=== PATIENT | female | born 1985 | race African-American/Black ===

== ENCOUNTER 2016-04-10 19:33 | Emergency (ER) | payer OTHER ==
[~2016-04-10] VITALS: Ht 172.7 cm; Wt 55.6 kg
[~2016-04-10 19:33] MED LIST: BENADRYL25 MG PO; CYCLOBENZAPRINE10 MG PO; DIAZEPAM10 M1 PO; DILAUDID 4 MG TA4 M1 PO; FLEXERIL; FOLIC ACID 1 MG1 M1; FOLIC ACID1 MG PO; HYDREA 500 MG500 M1; HYDREA 500 MG500 M1 PO; IMIPRAMINE HCL10 M2; LEXAPRO 10 MG T10 M1 PO; LIDOCAINE; LIDOCAINE 22 %/30 GM; LISINOPRIL2.5 MG; MARINOL5 MG PO; NEXIUM 40 MG CA40 M1; OXYCONTIN CR 2020 M1; PERCOCET 10-321 EAC1 PO; PHENERGAN 25 MG25 M1 PO; PHENERGAN25 MG RECTAL; POTASSIUM20 PO; PREDNISONE 10 M10 M1 PO; PRENATAL; PRINIVIL10 MG PO; PROZAC 20 MG20 MG; REGLAN 10 MG TA10 M1 PO; VITAMIN D1000 UNI1
[2016-04-10 20:35] LABS: ABSOLUTE NEUTROPHILS 9.9 thou/uL (1.4-8.2); BASOPHILS 0.8 % (0.0-2.0); EOSINOPHILS 1.7 % (0.0-3.0); HEMATOCRIT 23.4 % (37.0-47.0); HEMOGLOBIN 7.9 gm/dL (12.0-15.0); LYMPHOCYTES 22.3 % (24.0-44.0); MCH 29.7 pg (26.0-34.0); MCHC 33.7 % (28.0-37.0); MCV 88.1 fL (80.0-100.0); MONOCYTES 8.1 % (1.0-8.0); PLATELET COUNT 216 thou/uL (150-400); POLYS 67.1 % (36.0-66.0); RBC 2.65 mil/uL (4.20-5.00); RDW 18.2 % (10.5-14.5); WBC 14.8 thou/uL (4.0-11.0)
[2016-04-10 20:38] LABS: MANUAL DIFF NO
[2016-04-10 20:43] LABS: CALCIUM 8.5 mg/dL (8.5-10.1); CREATININE 3.5 mg/dL (0.6-1.3); POTASSIUM 4.9 mmol/L (3.5-5.1)
[2016-04-10 22:26] LABS: ALBUMIN 3.4 g/dL (3.4-5.0); DIRECT BILIRUBIN 0.2 mg/dL (<0.1-0.3); TOTAL BILIRUBIN 1.6 mg/dL (<0.1-1.0); TOTAL PROTEIN 7.4 g/dL (6.4-8.2)
[2016-04-10 22:37] LABS: URINE BILIRUBIN NEGATIVE (Negative); URINE BLOOD 2+ (Negative); URINE COLOR YELLOW; URINE GLUCOSE-RANDOM* NEGATIVE (Negative); URINE KETONES NEGATIVE (Negative); URINE LEUKOCYTES-REFLEX NEGATIVE (Negative); URINE PROTEIN (DIPSTICK) 2+ (Negative); URINE UROBILINOGEN 0.2 E.U./dl (0.2-1.0)
[2016-04-10 22:44] LABS: CASTS None Seen /LPF (None Seen); CRYSTALS None Seen /LPF (None Seen); SQUAMOUS 4-10 Moderate /LPF (0-3); URINE WBC-REFLEX None Seen /HPF (0-5)
[2016-04-10 22:45] LABS: URINE RBC 0-2 Rare /HPF (0-2)
== END 2016-04-10 23:52 | disposition home or self-care (01) ==
LOC: ER 19:33
PROVIDERS: Emergency Medicine; Physician Assistant
DX: D57.00 Hb-SS disease with crisis, unspecified (principal); N18.4 Chronic kidney disease, stage 4 (severe); D64.9 Anemia, unspecified; F41.9 Anxiety disorder, unspecified; F32.9 Major depressive disorder, single episode, unspecified; Z88.6 Allergy status to analgesic agent

== ENCOUNTER 2016-07-07 14:54 | Emergency (ER) | payer OTHER ==
[~2016-07-07] VITALS: Ht 172.7 cm; Wt 54.6 kg
[2016-07-07] MEDS ORDERED: PHENERGAN 25 MG25 M1 PO (15:09)
[2016-07-07] MEDS ORDERED: SODIUM BICARBO650 M3 PO (15:15)
[2016-07-07] MEDS ORDERED: ALBUTEROL0.63 MG/3 IH (15:16)
[2016-07-07 17:04] LABS: MCV 87.1 fL (80.0-100.0)
[2016-07-07 17:06] LABS: MCHC 34.4 g/dL (28.0-37.0); RBC 1.86 mil/uL (4.20-5.00); RDW 16.9 % (10.5-14.5)
[2016-07-07 17:10] LABS: HEMATOCRIT 16.2 % (37.0-47.0); HEMOGLOBIN 5.6 gm/dL (12.0-15.0)
[2016-07-07 17:18] LABS: ABSOLUTE RETIC COUNT 0.2051 10^6/uL; OBSERVED RETIC COUNT 8.96 % (0.6-2.6)
== END 2016-07-07 19:50 | disposition home or self-care (01) ==
LOC: ER 14:54
PROVIDERS: Emergency Medicine
DX: D57.00 Hb-SS disease with crisis, unspecified (principal); N18.5 Chronic kidney disease, stage 5; Z99.2 Dependence on renal dialysis; F41.9 Anxiety disorder, unspecified; F32.9 Major depressive disorder, single episode, unspecified; Z88.6 Allergy status to analgesic agent

== ENCOUNTER 2016-07-18 16:44 | Inpatient (IN) | payer OTHER ==
[~2016-07-18] VITALS: Ht 172.7 cm; Wt 54.9 kg
--- NOTE | ~2016-07-18 | HC ---
[facility] [place] [address] CONSULTATION Name: SOLITARIO CHAUHAN Room #: 430-P ADM IN M.R.#: [id number] Admission: 07/18/16 Attend Phys: Erick Woods MD Discharge: Date of : 81 Report #: [id number] THIS REPORT FOR: //name// CC: Bart Woods REASON FOR CONSULTATION: The patient is on dialysis. REASON FOR PRESENTATION: Weakness, fever and nausea. HISTORY OF PRESENT ILLNESS: This is a 31-year-old -Tong[place] female patient with history of sickle cell disease. She is followed by [facility]. She tells me that she had been started on dialysis 3 weeks ago. 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 She was diagnosed with sickle cell at the age of 3. She started dialysis 3 weeks ago utilizing a left IJ tunneled catheter, and she is currently maintained on a Wednesday, and Wednesday schedule. Her other comorbid issues include repeated episodes of sickle cell crises. She is followed by a home appliance technician for her sickle cell disease. She was found to have low hemoglobin on presentation and was admitted after being transfused for further evaluation and management. She was found to be hypokalemic; however, her hypokalemia rectified this morning. It does look like that she has significant amount of proteinuria based on the initial UA that was done. PAST MEDICAL AND SURGICAL HISTORY: 1. End-stage renal disease, maintained on dialysis every Wednesday, and Wednesday. 2. Repeated episodes of sickle cell crises. 3. Tubal ligation. 4. Status post left IJ tunneled catheter. 5. Status post gallbladder surgery. 6. Autosplenectomy. FAMILY HISTORY: Both parents have sickle cell traits. ALLERGIES: ZOFRAN. MEDICATIONS: 1. Dilaudid. 2. Folic acid. 3. Promethazine. SOCIAL HISTORY: No drug or alcohol abuse. 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 REVIEW OF SYSTEMS: GENERAL: As per the history of present illness. CARDIOVASCULAR: No chest pain; however, significant shortness of breath. [facility] [address] [place] [address] CONSULTATION Name: SOLITARIO CHAUHAN Room #: 430-[facility] IN [facility].#: [id number] Admission: 07/18/16 Attend Phys: Erick Woods MD Discharge: Date of : 81 Report #: [id number] PULMONARY: No cough or hemoptysis. GASTROINTESTINAL: She reported that she had vomited dark clotted blood. GENITOURINARY: She is still makes taking urine. No frequency or urgency. PHYSICAL EXAMINATION: GENERAL: She is alert and oriented. VITAL SIGNS: Temperature was 37.2. Blood pressure was 115/83. HEAD AND NECK: No jugular venous distention, right port left IJ. CHEST: Decreased air entry bilaterally. CARDIOVASCULAR: Regular with no rub. There is a systolic murmur. ABDOMEN: Soft and nontender with no hepatosplenomegaly. LOWER EXTREMITIES: No edema. DATA: Laboratory values reviewed. Hemoglobin is up to 7. Potassium is up to 4. Imaging including her chest x-ray reviewed. ASSESSMENT AND IMPRESSION: 1. End-stage renal disease. 2. Sickle cell. 3. Anemia. 4. Hypokalemia. 5. Vomitus of dark clotted blood x 1. 6. Fever. 7. Low hemoglobin value at 4 point something in the dialysis unit, for which she was advised to come to the emergency room. 8. Elevated ferritin. 9. Elevated liver enzymes. 10. Elevated LDH. PLAN: 1. Records are scanty given the fact that the patient is followed by [facility]. We will obtain the records. 2. She was transfused and her hemoglobin is up to an appropriate level. She is actually stable from my side to go home if she does not like spike any further temperature. Potassium was replaced and her potassium has rectified. 3. Pain control. 4. We will watch her numbers to decide about further dialysis treatment. 5. Elevated liver enzymes in a patient with sickle cell is expected. 6. Avoid further potassium supplements. 7. GI workup if [place] [address] CONSULTATION Name: SOLITARIO CHAUHAN Room #: 430-P ADM IN M.R.#: [id number] Admission: 07/18/16 Attend Phys: Erick Woods MD Discharge: Date of : 81 Report #: [id number] 8. Once I review the records, I will put in further recommendations regarding her end-stage renal disease. By: [id number] Sabiha Hinton MD /nt
--- NOTE | ~2016-07-18 | H ---
[facility] [place] [address] HISTORY AND PHYSICAL Name: SOLITARIO CHAUHAN Room #: 430-P [facility] IN M.R.#: [id number] Admission: 07/18/16 Attend Phys: Erick Woods MD Discharge: 07/19/16 Date of : 81 Report #: [id number] THIS REPORT FOR: //name// CC: Bart Woods DATE OF SERVICE: 07/19/2016 ATTENDING PHYSICIAN: Erick Woods MD. PRIMARY CARE PHYSICIAN: Bart Manjarrez MD. CHIEF COMPLAINT: Fever, nausea, vomiting and abdominal pain. HISTORY OF PRESENT ILLNESS: The patient is a 31-year-old female with a history of known sickle cell disease. She reports she has been in crisis for the last few weeks. She was actually seen in the ER on 07/07 with generalized body pain and was treated with pain medication and discharged back to home. She was recently started on hemodialysis about 3 weeks ago. She said that she was hospitalized at [facility] for crisis and her kidneys kept failing and she was started on dialysis. She had a temporary catheter in place. Prior to that, she had known chronic kidney stage IV. She is now being evaluated to start peritoneal dialysis. She has been receiving hemodialysis since that hospitalization on Tuesdays, and Saturdays. She just received dialysis today. She said ever since she was started on dialysis, she has been having increasing pain issues as well as increasing itching. She normally had some itching related to her regular Dilaudid use, but her itching has been worse since. She has seen a pain specialist in the past. She says that she has generalized pain which is worse in her hips, back and lower extremities. She also has abdominal pain which is diffuse. She has been vomiting intermittently for the last 4 days. She has not had any diarrhea. She actually feels constipated; although, she did have a normal bowel movement this morning. She also reports fevers up to 103.8 today. She does have chronic anemia. She says she does not get transfused unless her hemoglobin drops less than 6 and then at that time she only receives 1 unit of blood at a time because she has an iron overload disorder for which she has been treated with Desferal. She does not know if her disorder has any specific name. She is constantly scratching on herself, although there are no rashes or hives seen. She did receive some pain medication in the ER and has been admitted for further pain control as well as a blood transfusion. PAST MEDICAL HISTORY: Sickle cell disease; end-stage renal disease on hemodialysis; anemia; anxiety and depression, not on any current medications; and iron overload disorder. PAST SURGICAL HISTORY: Cholecystectomy, bilateral tubal ligation, Port-A-Cath [address] [address] HISTORY AND PHYSICAL Name: SOLITARIO CHAUHAN Room #: 430-P [facility] IN M.R.#: [id number] Admission: 07/18/16 Attend Phys: Erick Woods MD Discharge: 07/19/16 Date of : 81 Report #: [id number] placement, kidney biopsy, x 2. ALLERGIES: None. She does not take Zofran because she says that it makes her nausea and vomiting worse. HOME MEDICATIONS: Dilaudid 8 mg q. 4 hours p.r.n. pain; Benadryl 50 mg p.r.n.; Valium 10 mg at bedtime p.r.n.; Alvarado acid 1 mg daily; Marinol 5 mg daily, Phenergan 25 q. 6 hours p.r.n.; sodium bicarbonate 650 mg daily and albuterol inhaler p.r.n. SOCIAL HISTORY: The patient denies any tobacco, alcohol or drug use. She lives at home with her spouse and her 2 boys which are ages 6 and 4. FAMILY HISTORY: Her brother has sickle cell disease and had a stroke at the age of 18. There are no family members with any iron overload disorders. REVIEW OF SYSTEMS: Twelve point review of systems was reviewed with the patient, otherwise negative unless stated in the HPI. PHYSICAL EXAMINATION: GENERAL: The patient is an alert female, in no acute distress. VITAL SIGNS: Temperature is 37.4, heart rate 111, respirations 16, blood pressure is 134/91, oxygen 96% on room air. HEENT: PERRLA. Sclerae is nonicteric. Oral mucosa is pink and moist. NECK: Supple. No JVD noted. CARDIOVASCULAR: Normal S1, S2. No murmurs, rubs or gallops. RESPIRATORY: Breath sounds are clear bilaterally. No wheezing or rhonchi. Breathing is nonlabored. ABDOMEN: Soft and tender throughout, somewhat worse on the right side to palpation. Bowel sounds are hypoactive. VASCULAR: No edema noted. Pedal pulses are 2+. NEUROLOGIC: The patient is alert and oriented x 3. Speech is clear. She is moving all extremities equally. No focal weakness noted. PSYCHIATRIC: The patient is calm and cooperative, but she not make much eye contacts and does have a depressed affect. LABORATORY AND DIAGNOSTICS DATA: WBC is 19.7, hemoglobin 5.9 and platelets 265. Sodium 137, potassium 2.9, BUN 12, creatinine 2.3. Glucose 109. Reticulocyte count is 16.95, bilirubin 3.5, AST 99, ALT 97, alkaline phosphatase 153. Chest x-ray showed minor basilar atelectasis. UA showed 3+ protein, negative leukocyte esterase, no wbcs. Negative HCG. Moderate bacteria. CT the abdomen shows fullness of the right adnexal region suggesting a large [facility] [address] [place] [address] HISTORY AND PHYSICAL Name: SOLITARIO CHAUHAN Room #: 430-P [facility] IN [facility].#: [id number] Admission: 07/18/16 Attend Phys: Erick Woods MD Discharge: 07/19/16 Date of : 81 Report #: [id number] right ovarian cyst. There is a large amount of stool over the distal colon suggesting constipation, the bladder is collapsed. Consider possible cystitis, nothing for appendicitis or inflammatory bowel disease. ASSESSMENT AND PLAN: 1. Sickle cell crisis: Continue with fluids and pain control. Her reticulocyte count is elevated from previous labs. 2. End-stage renal disease: She was started on hemodialysis. If she is here more than a few days, we will consult renal as she will need hemodialysis on Wednesday to stay on her same schedule. 3. Chronic pain: She is on chronic narcotics, continue with current pain medications. 4. Iron overload disorder with chronic transaminitis: We will try to get the records from [facility]. She does get treated with Desferal outpatient. We will check iron levels. 5. Severe anemia: This is chronic, but her hemoglobin is lower than previous. We will go ahead and transfuse with a unit of blood and follow labs. 6. Hypokalemia: This will be replaced. Follow labs. 7. Chronic itching: It is not clear if this is due to her pain medications versus recently starting on hemodialysis versus elevated bilirubin, but her itching is worse than usual, continue with Benadryl p.r.n. 8. Leukocytosis: This is chronic as well. There is no source of infection seen on UA and chest x-ray, may be stress induced with her sickle cell crisis. No indication for antibiotics at this time. 9. Constipation: We will give MiraLax. 10. Large right ovarian cyst per CT: this can further be evaluated outpatient if it causes any further pain. 11. Deep vein thrombosis prophylaxis. Place SCDs. We will continue to follow the patient closely throughout the hospitalization and make changes based on clinical status. <ELECTRONICALLY SIGNED> By: CESARIO Paiz 07/20/16 0518 [id number] CESARIO Paiz /so
[~2016-07-18 16:44] MED LIST changes: +ALBUTEROL0.63 MG/3 IH; +SODIUM BICARBO650 M3 PO
[2016-07-18 16:45] VITALS: BP 134/91
[2016-07-18 17:19] LABS: ABSOLUTE NEUTROPHILS 14.3 thou/uL (1.4-8.2); BASOPHILS 0.5 % (0.0-2.0); EOSINOPHILS 0.9 % (0.0-3.0); LYMPHOCYTES 15.1 % (24.0-44.0); MCH 32.4 pg (26.0-34.0); MCHC 35.4 g/dL (28.0-37.0); MCV 91.5 fL (80.0-100.0); MONOCYTES 10.6 % (1.0-8.0); PLATELET COUNT 265 thou/uL (150-400); POLYS 72.9 % (36.0-66.0); RBC 1.84 mil/uL (4.20-5.00); RDW 24.9 % (10.5-14.5); WBC 19.7 thou/uL (4.0-11.0)
[2016-07-18 17:32] LABS: MANUAL DIFF NO
[2016-07-18 17:33] LABS: HEMATOCRIT 16.8 % (37.0-47.0)
[2016-07-18 17:34] LABS: HEMOGLOBIN 5.9 gm/dL (12.0-15.0)
[2016-07-18 17:45] LABS: ANISOCYTOSIS 3+; POLYCHROMASIA 1+
[2016-07-18 18:03] LABS: CALCIUM 8.1 mg/dL (8.5-10.1); CREATININE 2.3 mg/dL (0.6-1.0); TOTAL BILIRUBIN 3.5 mg/dL (<0.1-1.0); TOTAL PROTEIN 7.8 g/dL (6.4-8.2)
[2016-07-18 18:06] LABS: POTASSIUM 2.9 mmol/L (3.5-5.1)
[2016-07-18 18:23] LABS: URINE BILIRUBIN NEGATIVE (Negative); URINE BLOOD 3+ (Negative); URINE COLOR YELLOW; URINE GLUCOSE-RANDOM* NEGATIVE (Negative); URINE KETONES NEGATIVE (Negative); URINE LEUKOCYTES-REFLEX NEGATIVE (Negative); URINE PROTEIN (DIPSTICK) 3+ (Negative); URINE SPECIFIC GRAVITY 1.015 (1.003-1.035)
[2016-07-18 18:44] LABS: SQUAMOUS >10 Many /LPF (0-3)
[2016-07-18 18:45] LABS: CASTS None Seen /LPF (None Seen); CRYSTALS None Seen /LPF (None Seen); URINE WBC-REFLEX 0-5 Rare /HPF (0-5)
[2016-07-18 18:46] LABS: URINE RBC 0-2 Rare /HPF (0-2)
[2016-07-18 19:53] LABS: ABSOLUTE RETIC COUNT 0.3169 10^6/uL; OBSERVED RETIC COUNT 16.95 % (0.6-2.6)
[2016-07-18 20:59] VITALS: BP 115/84
[2016-07-18 21:15] VITALS: BP 113/83
[2016-07-19 01:15] VITALS: BP 115/78; BP 127/75
[2016-07-19 06:36] LABS: HEMATOCRIT 20.2 % (37.0-47.0); MCH 31.6 pg (26.0-34.0); MCHC 34.6 g/dL (28.0-37.0); MCV 91.4 fL (80.0-100.0); RBC 2.2 mil/uL (4.20-5.00); RDW 20.8 % (10.5-14.5); WBC 13.6 thou/uL (4.0-11.0)
[2016-07-19 06:54] LABS: CALCIUM 8.7 mg/dL (8.5-10.1); CREATININE 3.2 mg/dL (0.6-1.0); MAGNESIUM 1.9 mg/dL (1.8-2.4)
[2016-07-19 07:00] LABS: % SATURATION 103 % (20-39); IRON 178 ug/dL (50-170); TIBC 173 ug/dL (250-450); UIBC -5 ug/dL
[2016-07-19 08:00] VITALS: BP 119/82
[2016-07-19 12:59] VITALS: BP 119/82
[2016-07-19 16:00] VITALS: BP 133/87
[2016-07-19 16:38] VITALS: BP 119/82
== END 2016-07-19 17:12 | disposition home or self-care (01) | DRG 811 ==
LOC: ER 16:44 → EROBS 20:17 → 4E 21:04
PROVIDERS: Nurse Practitioner Acute Care; Physician Assistant
PROC: B2141ZZ Fluoroscopy of Right Heart using Low Osmolar Contrast (ICD-10-PCS; 2016-07-18)
PROC: 02H633Z Insertion of Infusion Device into Right Atrium, Percutaneous Approach (ICD-10-PCS; 2016-07-18)
PROC: 30233N1 Transfusion of Nonautologous Red Blood Cells into Peripheral Vein, Percutaneous Approach (ICD-10-PCS; principal; 2016-07-19)
DX: D57.00 Hb-SS disease with crisis, unspecified (principal); N18.6 End stage renal disease; F11.20 Opioid dependence, uncomplicated; F41.9 Anxiety disorder, unspecified; F32.9 Major depressive disorder, single episode, unspecified; D64.9 Anemia, unspecified; E87.6 Hypokalemia; D72.829 Elevated white blood cell count, unspecified; E83.111 Hemochromatosis due to repeated red blood cell transfusions; L29.9 Pruritus, unspecified; G89.29 Other chronic pain; R74.0 Nonspecific elevation of levels of transaminase and lactic acid dehydrogenase [LDH]; K59.00 Constipation, unspecified; N83.201 Unspecified ovarian cyst, right side; Z90.49 Acquired absence of other specified parts of digestive tract; Z88.8 Allergy status to other drugs, medicaments and biological substances; Z83.2 Family history of diseases of the blood and blood-forming organs and certain disorders involving the immune mechanism; Z82.3 Family history of stroke; Z99.2 Dependence on renal dialysis
CPT/HCPCS: 10183

== ENCOUNTER 2016-08-06 19:50 | Inpatient (IN) | payer OTHER ==
[~2016-08-06] VITALS: Ht 172.7 cm; Wt 54.0 kg
--- NOTE | ~2016-08-06 | HC ---
[facility] [place] [address] CONSULTATION Name: SOLITARIO CHAUHAN Room #: 422-P ADM IN M.R.#: [id number] Admission: 08/06/16 Attend Phys: Dianne Rodriguez MD Discharge: Date of : 81 Report #: [id number] THIS REPORT FOR: //name// CC: FAM unknown Dianne Rodriguez INFECTIOUS DISEASE CONSULTATION REASON FOR CONSULTATION: I was asked to evaluate concerning possible peritoneal dialysis catheter infection. HISTORY OF PRESENT ILLNESS: The patient was a 31-year-old with underlying sickle cell disease, end-stage renal disease who has been on dialysis for last several months. She had PD catheter placed approximately 3 weeks ago. She had been hospitalized last several days with a sickle crisis. For last 24-48 hours, she has noticed increased abdominal pain, specifically around the catheter. She has had temperature up to 100.1 degrees today. Hemodynamically had been stable and respiratory status had been stable. There has been no drainage from her dialysis catheter site. She does have a right chest Port-A-Cath in place as well as a left chest tunneled dialysis catheter. She has had some nausea and vomiting. No diarrhea. She has small amount of urine output. PAST MEDICAL HISTORY: Sickle cell disease, end-stage renal disease, tubal ligation, anxiety, depression, iron overload, cholecystectomy, kidney biopsy, C-sections. FAMILY HISTORY: Noncontributory other than her brother with sickle. SOCIAL HISTORY: Nonsmoker, no significant alcohol intake. ALLERGIES: ZOFRAN. MEDICATIONS: As noted on MAY, now on vancomycin and Zosyn that was started today. REVIEW OF SYSTEMS: No cough, sputum or chest pain. PHYSICAL EXAMINATION: VITAL SIGNS: Afebrile, hemodynamically stable. GENERAL: She was ambulatory, alert and cooperative. SKIN: Unremarkable other than tattoos. LYMPHATIC: Unremarkable. HEENT: Unremarkable. CHEST: Clear. HEART: Regular without murmur. CHEST: Right chest Port-A-Cath site was unremarkable. Left chest tunneled catheter was unremarkable. [facility] [address] [place] [address] CONSULTATION Name: SOLITARIO CHAUHAN Room #: 422[facility] IN M.R.#: [id number] Admission: 08/06/16 Attend Phys: Dianne Rodriguez MD Discharge: Date of : 81 Report #: [id number] ABDOMEN: Tender in the left upper quadrant around the PD catheter and along the catheter tunnel. I could not express any fluid. She was exquisitely tender though and would guard. Abdomen was otherwise soft and no hepatomegaly. EXTREMITIES: Unremarkable. LABORATORY STUDIES: Peritoneal fluid revealed 880 T-cells, 47% neutrophils, 9% lymphs, 17% eosinophils and 27% macrophages. Creatinine is 4. AST 88, bilirubin 3, ALT 98. Hemoglobin 8, white count 12.5, platelet count 192,000. Blood cultures and abdominal fluid culture pending. CT scan of the abdomen showed no fluid around the PD catheter tunnel. There was a small amount of fluid in the pelvis. IMPRESSION AND PLAN: A 31-year-old sickle cell disease with end-stage renal disease, now with low grade fever, abdominal pain and sickle crisis. The nausea, vomiting and gastrointestinal upset issues may well be related to her peritoneal dialysis catheter. It is hard to tell under examination for she guards extensively for a lot of this area. She also had some guarding when I manipulated the chest catheters. I would recommend continuing her IV antibiotic therapy and awaiting culture results. She does not appear to have peritonitis from the fluid analysis, but I would be concerned about a tunnel infection, although there is no fluid identified on CT scan. We will see how she does over the next 24 hours after IV antibiotic therapy. If no improvement, will need her catheter removed. <ELECTRONICALLY SIGNED> By: Dada Reddy MD 08/13/16 1008 10 0214 Dada Reddy MD /nt
--- NOTE | ~2016-08-06 | S ---
[facility] [place] [address] SURGICAL PATH RPT PROCEDURE Name: SOLITARIO SANDERS Room #: 422-P DIS IN M.R.#: [id number] Admission: 08/06/16 Date of : 81 Discharge: 08/14/16 Report #: [id number] Path Case #: [id number] PATHOLOGY REPORT COLLECTION DATE: 08/12/2016 RECEIVED DATE: 08/13/2016 SUBMITTING PHYS: Dr. Caro Leon OTHER PHYS: Dr. Gurvinder Nelson SPECIMEN(S) RECEIVED: A.Nodular duodenal bulb bx B.Gastric * * * * * * * * * * * * FINAL DIAGNOSIS: A. 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 - Negative for dysplasia. B. Gastric mucosa, gastric, endoscopic biopsy: - Mild reactive gastropathy. - Negative for intestinal metaplasia or atrophy. - Negative for Helicobacter pylori. COMMENT: Helicobacter pylori immunohistochemical stain performed on block B1-negative. PATHOLOGIST: Irina Botello M.D. REPORT ELECTRONICALLY SIGNED BY: Irina Botello M.D. DATE/TIME: 08/14/2016 16:05 * * * * * * * * * * * * GROSS PATHOLOGY: A. Received in formalin labeled "Solitario Sanders, nodule duodenal bulb," is a segment of sanchez soft tissue measuring 0.2 x 0.2 x 0.2 cm in maximum dimension. The specimen is submitted entirely in cassette A1. B. Received in formalin labeled " Solitario Sanders, shady," are 2 segments of sanchez soft tissue measuring 0.9 x 0.2 x 0.2 cm in aggregate dimensions and ranging from 0.4 to 0.5 cm in maximum dimension. The specimen is submitted entirely in cassette B1. (NARGIS; 08/13/2016) CLINICAL HISTORY: [facility] [place] [address] SURGICAL PATH RPT PROCEDURE Name: SOLITARIO SANDERS Room #: 422-P [facility] IN M.R.#: [id number] Admission: 08/06/16 Date of : 81 Discharge: 08/14/16 Report #: [id number] Path Case #: [id number] Abdominal pain INITIAL CPT CODE(S): A; 63102 B; 78185, 28432 Professional services performed by [facility] at [address], [place] [address] Technical services performed by [facility] at [address] [place] [address], [facility] [address] [address]. [facility] [address] [place] [id number] PHONE: [phone] DIRECTOR: Barry Miller M.D. * * * END OF REPORT * * *
--- NOTE | ~2016-08-06 | HC ---
[facility] [place] [address] CONSULTATION Name: SOLITARIO CHAUHAN Room #: 422-P ADM IN M.R.#: [id number] Admission: 08/06/16 Attend Phys: Dianne Rodriguez MD Discharge: Date of : 81 Report #: [id number] THIS REPORT FOR: //name// CC: FAM unknown Dianne Rodriguez DATE OF SERVICE: 08/07/2016 NEPHROLOGY CONSULTATION REASON FOR CONSULTATION: End-stage renal disease. HISTORY OF PRESENT ILLNESS: The patient with known sickle cell, has developed renal failure and has been on dialysis for several months. She had a peritoneal dialysis catheter placed, but she has been on hemodialysis with a tunnel dialysis catheter. The peritoneal catheter was placed yesterday. She developed what appears to be a sickle crisis with very ever pain in the back and legs. She was admitted and she is getting treated for that. PAST MEDICAL HISTORY: Sickle cell, as mentioned; iron overload; autosplenectomy and previous gallbladder removal. FAMILY HISTORY: Positive for sickle cell in a brother. SOCIAL HISTORY: No cigarettes or alcohol. HOME MEDICATIONS: Listed as diazepam, Marinol, hydromorphone bicarbonate and Phenergan. REVIEW OF SYSTEMS: GENERAL: She has been doing somewhat poorly. EYES: Her vision is okay. ENT: Hearing okay. No mouth ulcers. ENDOCRINE: No diabetes or thyroid disease. RESPIRATORY: Not short of breath. No pleuritic pain. CARDIAC: Has not had angina, heart failure or arrhythmias. GASTROINTESTINAL: Appetite is fair. No diarrhea or bloody stool. She has had some nausea and vomiting. GENITOURINARY: Urinary stream is still okay. NEUROLOGIC: No seizure, syncope or stroke. SKELETAL: She is having a crisis with the extremity pains. PHYSICAL EXAMINATION: GENERAL: This is a somewhat ill-appearing young lady. SKIN: Unremarkable. SKELETAL: Not obese, thin. [facility] [address] [place] [address] CONSULTATION Name: SOLITARIO CHAUHAN Room #: 422-P [facility] IN [facility].#: [id number] Admission: 08/06/16 Attend Phys: Dianne Rodriguez MD Discharge: Date of : 81 Report #: [id number] HEENT: Extraocular movements full. Vision intact. Hearing intact. Mucous membranes moist. Tongue, buccal mucosa benign. NECK: Supple. No carotid bruits. CHEST: Clear to auscultation. HEART: Regular rate and rhythm. ABDOMEN: Soft, nontender. Peritoneal dialysis catheter in place and tunneled hemodialysis catheter in place. LABORATORY DATA: The hemoglobin is only 5.6. Sodium 137, potassium is 4.3, chloride 104, bicarbonate 30, BUN 13 and creatinine 2.8. ASSESSMENT AND PLAN: 1. End-stage renal disease. She is to start on dialysis by the [facility]. We will continue treatment. I will give her only a 3-hour treatment as her numbers look pretty good. I will not be able to with ultrafiltration. 2. 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 3. Iron overload. <ELECTRONICALLY SIGNED> By: Cayetano Alberto MD 08/10/16 1048 1054 1459 Cayetano Alberto MD /nt
--- NOTE | ~2016-08-06 | P ---
[facility] [place] [address] PROCEDURE REPORT Name: SOLITARIO CHAUHAN Room #: 422-P ADM IN M.R.#: [id number] Admission: 08/06/16 Attend Phys: Dianne Rodriguez MD Discharge: Date of : 81 Report #: [id number] THIS REPORT FOR: //name// CC: FAM unknown Cayetano Rodriguez MD DATE OF SERVICE: 08/12/2016 This is a patient of Dr. Dianne Rodriguez. PROCEDURE: EGD with biopsies. CHIEF COMPLAINT: Abdominal pain, nausea, vomiting. She also back pain. She is believed to be in sickle cell crisis right now. She had a recent peritoneal dialysis catheter placed which has not been used yet. She is still on hemodialysis. Informed consent for this procedure was obtained prior to the administration of any medication. The risks of the procedure which include bleeding, perforation, infection, complications of sedation and the possibility I could miss something have been explained to the patient and she has indicated her consent by signing. Propofol was slowly titrated before and during this procedure for patient comfort by the anesthesia service. The [employer] ([employer]n upper videoscope was introduced through the upper esophageal sphincter and advanced under direct visualization to the descending duodenum. Findings are noted on withdrawal of the scope. The duodenal mucosa appears normal throughout its entirety except for just inside the duodenum as we come through the pylorus, there is a little area of what looks like ectopic gastric mucosa. Biopsies obtained times 1 to make certain that this is nothing else. Other than that, the duodenal bulb appears normal. Good hemostasis was noted after the biopsy. Pylorus, normal mucosa. Antrum, normal mucosa. Body, normal mucosa. Cardia and fundus, normal mucosa. Retroflex view did not reveal any hiatal hernia. Biopsies are obtained times 2 from the antrum and body of the stomach to evaluate for possible H. pylori infection. Retroflex view did not reveal any hiatal hernia. The scope was withdrawn to the esophagus. The Z-line is appropriately located at the top of the gastric folds and appears normal. The esophageal mucosa appears normal throughout its entirety. The scope was withdrawn. The patient went to the recovery area in stable condition. She tolerated the procedure well. IMPRESSION: Possible ectopic mucosa in the proximal duodenal bulb, biopsy pending. Other than that, normal EGD to descending duodenum. RECOMMENDATIONS: At this point, I am wondering if she might have gastroparesis. [address] [address] PROCEDURE REPORT Name: SOLITARIO CHAUHAN Room #: 422-P [facility] IN .R.#: [id number] Admission: 08/06/16 Attend Phys: Dianne Rodriguez MD Discharge: Date of : 81 Report #: [id number] We will schedule her for a gastric emptying test as the next study. Thank you very much once again for allowing me to participate in her care, Dr. Rodriguez. <ELECTRONICALLY SIGNED> By: Caro Leon DO 08/12/16 2329 1145 2316 Caro Leon, /nt
[2016-08-06 20:15] VITALS: BP 124/88
[2016-08-06 21:46] LABS: MANUAL DIFF YES; MCH 32.3 pg (26.0-34.0); MCV 92.1 fL (80.0-100.0); PLATELET COUNT 326 thou/uL (150-400); RBC 1.88 mil/uL (4.20-5.00); RDW 23.3 % (10.5-14.5); WBC 13.6 thou/uL (4.0-11.0)
[2016-08-06 21:48] LABS: HEMATOCRIT 17.3 % (37.0-47.0); HEMOGLOBIN 6.1 gm/dL (12.0-15.0)
[2016-08-06 21:49] LABS: ABSOLUTE RETIC COUNT 0.3244 10^6/uL; OBSERVED RETIC COUNT 17.18 % (0.6-2.6)
[2016-08-06 21:53] LABS: CALCIUM 8.1 mg/dL (8.5-10.1); CREATININE 2.5 mg/dL (0.6-1.0); POTASSIUM 4.2 mmol/L (3.5-5.1)
[2016-08-06 21:57] LABS: INR 1.1; PROTIME 11.5 Seconds (9.3-11.4)
[2016-08-06 21:58] LABS: TOTAL BILIRUBIN 2.9 mg/dL (<0.1-1.0); TOTAL PROTEIN 7.4 g/dL (6.4-8.2)
[2016-08-06 22:11] LABS: ABSOLUTE NEUTROPHILS 10.1 thou/uL (1.4-8.2); NUCLEATED RBCS 3 /100WBC; TOTAL CELL COUNT 100
[2016-08-06 22:13] LABS: ANISOCYTOSIS 2+; POLYCHROMASIA 1+
[2016-08-06 22:14] LABS: SCHISTOCYTES RARE; TARGET CELLS OCCASIONAL
[2016-08-06 22:55] VITALS: BP 121/84
[2016-08-06] MEDS ORDERED: DIPHENHIST50 MG PO (23:08)
[2016-08-07 04:00] VITALS: BP 128/88; BP 141/86
[2016-08-07 04:42] VITALS: BP 128/88
[2016-08-07 05:48] LABS: MCH 31.9 pg (26.0-34.0); MCHC 33.7 g/dL (28.0-37.0); MCV 94.8 fL (80.0-100.0); RBC 1.75 mil/uL (4.20-5.00); RDW 23.5 % (10.5-14.5); WBC 13.6 thou/uL (4.0-11.0)
[2016-08-07 05:51] LABS: HEMATOCRIT 16.6 % (37.0-47.0); HEMOGLOBIN 5.6 gm/dL (12.0-15.0)
[2016-08-07 05:59] LABS: CALCIUM 8.4 mg/dL (8.5-10.1); CREATININE 2.8 mg/dL (0.6-1.0); POTASSIUM 4.3 mmol/L (3.5-5.1)
[2016-08-07 07:43] VITALS: BP 116/76
[2016-08-07 15:33] VITALS: BP 120/83
[2016-08-07 20:00] VITALS: BP 112/74
[2016-08-08 04:00] VITALS: BP 126/78
[2016-08-08 06:08] LABS: WBC 13.6 thou/uL (4.0-11.0)
[2016-08-08 06:12] LABS: MCH 32.7 pg (26.0-34.0); MCV 93.4 fL (80.0-100.0); RBC 1.64 mil/uL (4.20-5.00)
[2016-08-08 06:21] LABS: HEMATOCRIT 15.3 % (37.0-47.0); HEMOGLOBIN 5.4 gm/dL (12.0-15.0)
[2016-08-08 06:22] LABS: CALCIUM 8.4 mg/dL (8.5-10.1); CREATININE 3.6 mg/dL (0.6-1.0); POTASSIUM 4.6 mmol/L (3.5-5.1)
[2016-08-08 09:03] VITALS: BP 132/83; BP 149/102
[2016-08-08 09:06] VITALS: BP 128/80
[2016-08-08 11:39] VITALS: BP 128/79; BP 135/91
[2016-08-08 16:03] VITALS: BP 135/91
[2016-08-08 20:00] VITALS: BP 128/92
[2016-08-09 04:14] LABS: HEMATOCRIT 24.8 % (37.0-47.0); MCV 91.7 fL (80.0-100.0); WBC 11.6 thou/uL (4.0-11.0)
[2016-08-09 04:16] LABS: MCH 31.2 pg (26.0-34.0); MCHC 34.1 g/dL (28.0-37.0); RBC 2.71 mil/uL (4.20-5.00); RDW 19.6 % (10.5-14.5)
[2016-08-09 05:00] LABS: HEMOGLOBIN 8.5 gm/dL (12.0-15.0)
[2016-08-09 05:59] VITALS: BP 135/96
[2016-08-09 16:08] VITALS: BP 131/97
[2016-08-09 20:00] VITALS: BP 137/101
[2016-08-10 04:00] VITALS: BP 126/90
[2016-08-10 06:23] LABS: HEMOGLOBIN 8.4 gm/dL (12.0-15.0); MCH 31.8 pg (26.0-34.0); RBC 2.63 mil/uL (4.20-5.00); RDW 21.7 % (10.5-14.5); WBC 11.1 thou/uL (4.0-11.0)
[2016-08-10 06:44] LABS: CALCIUM 7.3 mg/dL (8.5-10.1); PHOSPHORUS 4.8 mg/dL (2.5-4.9)
[2016-08-10 07:27] VITALS: BP 137/96
[2016-08-10 07:49] VITALS: BP 137/96
[2016-08-10 16:02] VITALS: BP 130/97
[2016-08-11 00:36] VITALS: BP 132/93
[2016-08-11 04:38] VITALS: BP 106/41
[2016-08-11 06:25] LABS: HEMATOCRIT 23.5 % (37.0-47.0); MCH 31.1 pg (26.0-34.0); MCHC 33.9 g/dL (28.0-37.0); MCV 91.8 fL (80.0-100.0); RBC 2.56 mil/uL (4.20-5.00); RDW 21.2 % (10.5-14.5); WBC 11.2 thou/uL (4.0-11.0)
[2016-08-11 06:35] LABS: CALCIUM 8.4 mg/dL (8.5-10.1); CREATININE 4.4 mg/dL (0.6-1.0)
[2016-08-11 07:38] VITALS: BP 130/91
[2016-08-11 15:59] VITALS: BP 114/84
[2016-08-11 20:00] VITALS: BP 118/82
[2016-08-12 04:17] VITALS: BP 116/80
[2016-08-12 05:59] LABS: HEMATOCRIT 23.1 % (37.0-47.0); MCHC 34.5 g/dL (28.0-37.0); MCV 89.9 fL (80.0-100.0); RBC 2.57 mil/uL (4.20-5.00); RDW 20.2 % (10.5-14.5); WBC 12.5 thou/uL (4.0-11.0)
[2016-08-12 06:10] LABS: POTASSIUM 5.1 mmol/L (3.5-5.1)
[2016-08-12 13:50] LABS: ABG SAMPLE TYPE ARTERIAL; BE(vivo) -0.6 mmol/L (-2 to +3); HCO3 23.6 mmol/L (22.0-26.0); LACTATE 0.79 mmol/L (0.5-2.0); O2(CT) 11.5 mL/dL (15.0-23.0); O2Hb 90.2 % (92.0-98.0); PCO2 36.7 mmHg (35.0-45.0); PO2 68.8 mmHg (80.0-100.0); pH 7.426 (7.360-7.450); sO2 94.3 % (92.0-98.0); tCO2 24.7 mmol/L (24.0-30.0)
[2016-08-12 13:51] LABS: ABG COMMENT NO COMPLICATIONS; STICK SITE R.RADIAL
[2016-08-12 14:52] LABS: BF NUCLEATED CELLS 882; BF RBC 1187
[2016-08-12 14:54] LABS: CLARITY CLOUDY; COLOR DARK YELLOW; MANUAL DIFF YES; TOTAL VOLUME 20 mL
[2016-08-12 15:37] LABS: BF MACROPHAGE 27; BF NEUTROPHILS 47
[2016-08-12 15:58] VITALS: BP 123/84
[2016-08-12 20:00] VITALS: BP 119/85
[2016-08-13 08:54] VITALS: BP 128/81
[2016-08-13 16:06] VITALS: BP 128/89
[2016-08-13 18:00] LABS: URINE BILIRUBIN NEGATIVE (Negative); URINE BLOOD 3+ (Negative); URINE COLOR YELLOW; URINE GLUCOSE-RANDOM* NEGATIVE (Negative); URINE KETONES NEGATIVE (Negative); URINE NITRITE NEGATIVE (Negative); URINE PROTEIN (DIPSTICK) 2+ (Negative); URINE SPECIFIC GRAVITY 1.015 (1.003-1.035); URINE UROBILINOGEN 0.2 E.U./dl (0.2-1.0)
[2016-08-13 18:10] LABS: SQUAMOUS 4-10 Moderate /LPF (0-3); URINE WBC None Seen /HPF (0-5)
[2016-08-13 18:11] LABS: BACTERIA 1-9 Few /HPF (None Seen); CASTS None Seen /LPF (None Seen); CRYSTALS None Seen /LPF (None Seen); URINE RBC 0-2 Rare /HPF (0-2)
[2016-08-13 20:00] VITALS: BP 115/84
[2016-08-14 05:00] VITALS: BP 111/70
[2016-08-14 06:27] LABS: HEMATOCRIT 22.8 % (37.0-47.0); HEMOGLOBIN 7.9 gm/dL (12.0-15.0); MCH 30.8 pg (26.0-34.0); MCHC 34.5 g/dL (28.0-37.0); MCV 89.1 fL (80.0-100.0); RBC 2.56 mil/uL (4.20-5.00); RDW 19.1 % (10.5-14.5); WBC 9.8 thou/uL (4.0-11.0)
[2016-08-14 06:35] LABS: CALCIUM 8.7 mg/dL (8.5-10.1); CREATININE 3.6 mg/dL (0.6-1.0); POTASSIUM 4.8 mmol/L (3.5-5.1)
[2016-08-14 08:41] VITALS: BP 116/76
[2016-08-14 09:01] LABS: CLARITY CLOUDY; COLOR YELLOW; TOTAL VOLUME 30 mL
[2016-08-14 09:07] LABS: BF NUCLEATED CELLS 250; BF RBC 259
[2016-08-14 09:09] LABS: MANUAL DIFF YES
[2016-08-14] MEDS ORDERED: DILAUDID 4 MG TA4 M1 PO (09:56)
[2016-08-14] MEDS ORDERED: AUGMENTIN (14:15)
[2016-08-14 14:25] VITALS: BP 137/96
[2016-08-14 15:12] VITALS: BP 137/96
[2016-08-16 13:53] LABS: BF MACROPHAGE 11; BF NEUTROPHILS 20
[2016-08-16 13:55] LABS: BF COMMENTS MONOCYTES
== END 2016-08-14 15:10 | disposition home or self-care (01) | DRG 811 ==
LOC: ER 19:50 → 4E 22:05 → EROBS 22:05 → 4E 23:01
PROVIDERS: Emergency Medicine; Family Medicine; Hospitalist; Internal Medicine Hematology & Oncology; Internal Medicine Nephrology
PROC: 0DB68ZX Excision of Stomach, Via Natural or Artificial Opening Endoscopic, Diagnostic (ICD-10-PCS; principal; 2016-08-06)
PROC: 0DB98ZX Excision of Duodenum, Via Natural or Artificial Opening Endoscopic, Diagnostic (ICD-10-PCS; principal; 2016-08-06)
PROC: 30233N1 Transfusion of Nonautologous Red Blood Cells into Peripheral Vein, Percutaneous Approach (ICD-10-PCS; 2016-08-08)
PROC: 5A1D60Z (ICD-10-PCS; 2016-08-08)
DX: D57.00 Hb-SS disease with crisis, unspecified (principal); N18.6 End stage renal disease; E44.1 Mild protein-calorie malnutrition; Z68.1 Body mass index [BMI] 19.9 or less, adult; N08 Glomerular disorders in diseases classified elsewhere; F32.9 Major depressive disorder, single episode, unspecified; F41.9 Anxiety disorder, unspecified; G89.29 Other chronic pain; L29.9 Pruritus, unspecified; R79.89 Other specified abnormal findings of blood chemistry; K21.9 Gastro-esophageal reflux disease without esophagitis; K59.00 Constipation, unspecified; Z90.49 Acquired absence of other specified parts of digestive tract; Z99.2 Dependence on renal dialysis; Z88.8 Allergy status to other drugs, medicaments and biological substances; Z83.2 Family history of diseases of the blood and blood-forming organs and certain disorders involving the immune mechanism
CPT/HCPCS: 10183; 32100; 62110; 62900; 70005

== ENCOUNTER 2016-08-22 16:12 | Emergency (ER) | payer OTHER ==
[~2016-08-22] VITALS: Ht 172.7 cm; Wt 51.7 kg
[~2016-08-22 16:12] MED LIST changes: +AUGMENTIN; +DIPHENHIST50 MG PO
[2016-08-22 17:06] LABS: ABSOLUTE NEUTROPHILS 7.8 thou/uL (1.4-8.2); BASOPHILS 0.7 % (0.0-2.0); EOSINOPHILS 3.4 % (0.0-3.0); HEMATOCRIT 21.5 % (37.0-47.0); HEMOGLOBIN 7.2 gm/dL (12.0-15.0); MCH 29.6 pg (26.0-34.0); MCHC 33.5 g/dL (28.0-37.0); MCV 88.4 fL (80.0-100.0); MONOCYTES 11.3 % (1.0-8.0); PLATELET COUNT 367 thou/uL (150-400); POLYS 62.6 % (36.0-66.0); RBC 2.43 mil/uL (4.20-5.00); RDW 18.8 % (10.5-14.5); WBC 12.5 thou/uL (4.0-11.0)
[2016-08-22 17:09] LABS: MANUAL DIFF NO
[2016-08-22 17:10] LABS: ABSOLUTE RETIC COUNT 0.1138 10^6/uL; OBSERVED RETIC COUNT 4.69 % (0.6-2.6)
[2016-08-22 17:12] LABS: CALCIUM 8.2 mg/dL (8.5-10.1); CREATININE 1.8 mg/dL (0.6-1.0); POTASSIUM 3.3 mmol/L (3.5-5.1)
[2016-08-22 17:42] LABS: DIRECT BILIRUBIN 0.3 mg/dL (<0.1-0.3); TOTAL PROTEIN 7.7 g/dL (6.4-8.2)
[2016-08-22] MEDS ORDERED: BENADRYL25 MG PO (19:15)
== END 2016-08-22 20:02 | disposition home or self-care (01) ==
LOC: ER 16:12
PROVIDERS: Emergency Medicine
DX: D57.00 Hb-SS disease with crisis, unspecified (principal); M54.5 Low back pain; Z99.2 Dependence on renal dialysis; F41.9 Anxiety disorder, unspecified; F32.9 Major depressive disorder, single episode, unspecified; N18.5 Chronic kidney disease, stage 5; Z90.49 Acquired absence of other specified parts of digestive tract; Z88.6 Allergy status to analgesic agent

== ENCOUNTER 2016-09-03 15:19 | Inpatient (IN) | payer OTHER ==
[~2016-09-03] VITALS: Ht 172.7 cm; Wt 52.0 kg
--- NOTE | ~2016-09-03 | HC ---
[facility] [place] [address] CONSULTATION Name: SOLITARIO CHAUHAN Room #: 301-I ADM IN M.R.#: [id number] Admission: 09/03/16 Attend Phys: Omar Hollins MD Discharge: Date of : 81 Report #: [id number] THIS REPORT FOR: //name// CC: Omar Chang REFERRING PROVIDER: Omar Hollins MD REASON FOR CONSULTATION: Abdominal pain. HISTORY OF PRESENT ILLNESS: The patient is a 31-year-old -Ugandan female with presumed end-stage renal disease secondary to sickle cell anemia, who has followed with [facility] for quite some time and has undergone hemodialysis 3 times weekly. The patient recently had a peritoneal dialysis catheter placed by Dr. Padgett at [facility] on the [address] done at the beginning of July and states that she has had horrible abdominal pain since that time. Interestingly, she states when she called Dr. Padgett's office, his nurse told her that he sutured the catheter somewhere inside the abdomen (which is not normal practice) and that was the likely etiology of the patient's pain. Nonetheless, the patient has been readmitted with horrible abdominal pain. She is currently dialyzing and I was asked to evaluate for the possibility of peritoneal dialysis catheter removal. The patient does have a known history of major narcotic dependence. She also has recently denied any significant abdominal pain to numerous other practitioners. Finally, she also has a history of elevated white blood cell count, which is usual for her. PAST MEDICAL HISTORY: 1. End-stage renal disease. 2. Sickle cell disease. 3. Prior . 4. She is status post tubal ligation and peritoneal dialysis catheter placements. MEDICATIONS: Dilaudid, folic acid, and promethazine. ALLERGIES: Numerous and include ZOFRAN. FAMILY HISTORY: Reviewed and noncontributory. SOCIAL HISTORY: The patient states she does not utilize drugs, alcohol or any tobacco. REVIEW OF SYSTEMS: GENERAL: The patient denies any chills, but states she had subjective fever at home. HEENT: No change in vision, change in hearing. NECK: No swelling or difficulty swallowing. [facility] [address] [place] [address] CONSULTATION Name: SOLITARIO CHAUHAN Room #: [address] [place] [address] [place] [facility].#: [id number] Admission: 09/03/16 Attend Phys: Omar Hollins MD Discharge: Date of : 83 Report #: [id number] HEART: No chest pain or palpitations. LUNGS: No cough or shortness of breath. ABDOMEN: She complains of abdominal pain, but no nausea or vomiting. GENITOURINARY: No dysuria or hematuria. ENDOCRINE: No polyuria or polydipsia. HEMATOLOGIC: No history of bleeding or easy bruising. EXTREMITIES: No history weakness or limited range of motion. NEUROLOGIC: No history of syncope or near syncopal episodes. SKIN AND INTEGUMENT: No history of abnormal lesions or moles. PSYCHIATRIC: No history of anxiety or depression. PHYSICAL EXAMINATION: VITAL SIGNS: Temperature 98.8, pulse 89, respirations 16, blood pressure 129/85. She stands 5 feet 8 inches tall and weighs 112 pounds. GENERAL: Alert and oriented, no acute distress. HEENT: Normocephalic, atraumatic. Pupils equal, round, reactive to light. NECK: Supple, without lymphadenopathy. Trachea midline. HEART: Regular rate and rhythm. LUNGS: Clear to auscultation bilaterally. ABDOMEN: Soft, no distention. Her peritoneal dialysis catheter has intact dressing and appears uninflamed. The patient has no abdominal pain to palpation when distracted. GENITOURINARY: Normal external female genitalia. EXTREMITIES: No clubbing, cyanosis or edema. NEUROLOGIC: Cranial nerves 2-12 are grossly intact. PSYCHIATRIC: Normal mood and affect. SKIN AND INTEGUMENT: No other abnormal lesions or moles. LABORATORY AND X-RAY DATA: CBC yesterday showed a white blood cell count of 17.6 thousand, hemoglobin of 6.7, platelets 249,000. Creatinine 3.2. Liver function enzymes were elevated with an AST of 127, ALT 110, alkaline phosphatase 153 with a total bilirubin of 1.9. Her albumin is low at 2.8. Ultrasound of the abdomen was reviewed showing no acute findings. Lactic acid was normal at 1.0. Urinalysis was positive for urinary tract infection. CT scan of the abdomen and pelvis shows a peritoneal dialysis catheter appearing to be in good position. She does have severe constipation. ASSESSMENT AND PLAN: A 31-year-old -Ugandan female admitted with sickle cell crisis and end-stage renal disease that necessitates hemodialysis, who states she has had abdominal pain since placement of a peritoneal dialysis catheter nearly a month ago. Evaluation of the catheter itself appears no outward signs of abnormality and the CT scan shows no inflammation in the abdomen. I would like to obtain the operative report from [facility] to see exactly what was done in placement of that catheter, but for now, she should continue hemodialysis as current. She has no indication for emergent surgical intervention at this time and as such, once I had a chance to review her [facility] [address] [place] [address] CONSULTATION Name: SOLITARIO CHAUHAN Room #: 301-I ADM IN .R.#: [id number] Admission: 09/03/16 Attend Phys: Omar Hollins MD Discharge: Date of : 83 Report #: [id number] operative report, I will leave any further recommendations in the patient's chart as appropriate. I sincerely appreciate this consult. <ELECTRONICALLY SIGNED> By: Ronnie Lam MD, FACS 09/06/16 0806 1515 28 Ronnie Lam MD, FACS /nt
--- NOTE | ~2016-09-03 | HC ---
[facility] [place] [address] CONSULTATION Name: SOLITARIO CHAUHAN Room #: 301-I ADM IN M.R.#: [id number] Admission: 09/03/16 Attend Phys: Isak Estrella DO Discharge: Date of : 83 Report #: [id number] THIS REPORT FOR: //name// CC: Omar Chang REASON FOR CONSULTATION: End-stage renal disease. REASON FOR PRESENTATION: Abdominal pain. HISTORY OF PRESENT ILLNESS: The patient is well known to me. She is a presumed end-stage renal disease due to sickle cell anemia. She has followed with [facility] facility. She was planning to go to peritoneal dialysis and had the PD catheter placed a few months ago. She is dialyzing every Wednesday, and Wednesday. She is known to have major narcotic dependence issues. She presented complaining typical or she stated typical sickle cell crisis pain. She also had some nausea and vomiting. She dialyzed yesterday without any problems. She denies any significant abdominal pain. She reported that she had some fevers with a temperature of 103. She was completely afebrile on her presentation to our facility. She is also found to have elevated white blood cells, which is well known to her along with her usual sickle cell anemia, blood counts pattern. Due to the elevation of the elevated white blood cells and liver enzymes she was admitted for further evaluation and management. I was consulted to manage her end-stage renal disease. PAST MEDICAL HISTORY: 1. End-stage renal disease. 2. Status post tubal ligation. 3. Status post PD catheter. 4. Port-A-Cath from the right side. 5. Left tunneled catheter on the right side. 6. Status post kidney biopsy. 7. . MEDICATIONS: Dilaudid, folic acid, promethazine. ALLERGIES: NUMEROUS INCLUDING ZOFRAN. SOCIAL HISTORY: No drug or alcohol abuse. FAMILY HISTORY: Sickle cell runs in the family. REVIEW OF SYSTEMS: CONSTITUTIONAL: Significant for fever. PULMONARY: No cough or hemoptysis. CARDIOVASCULAR: No chest pain. GASTROINTESTINAL: As per the history of present illness. [facility] [address] [place] [address] CONSULTATION Name: SOLITARIO CHAUHAN Room #: 301-I ADM IN [facility].#: [id number] Admission: 09/03/16 Attend Phys: Isak Estrella DO Discharge: Date of : 83 Report #: [id number] GENITOURINARY: No urinary frequency or urgency. MUSCULOSKELETAL: As per the history of present illness. PHYSICAL EXAMINATION: GENERAL: She is alert, oriented, sitting on bed with no apparent discomfort. VITAL SIGNS: Blood pressure 116/79, temperature 37.1. HEAD AND NECK: Right IJ Port-A-Cath. Left IJ tunneled catheter. CHEST: No crackles. CARDIOVASCULAR: No rub. ABDOMEN: Peritoneal catheter with dressing inside. LOWER EXTREMITIES: No edema. LABORATORY VALUES: Reviewed. White blood cell count of 17.6 down from 25. Hemoglobin is 6.7. Chemistry panel reviewed. IMAGING: CT abdomen and pelvis was reviewed and there were no acute abnormality detected. Ultrasound of the liver was unremarkable. Chest x-ray was also not remarkable. ASSESSMENT, IMPRESSION AND PLAN: 1. End-stage renal disease. 2. Major narcotic dependence. 3. Sickle cell. 4. Elevated white blood cell. 5. Dialysis will be arranged every Wednesday, and Wednesday. Her elevated liver enzymes and bilirubin are well known to be related to her sickle cell. She has major narcotic dependence with numerous repeated admissions in the last few months that needs to be addressed. From our side we will arrange for her to have here dialysis as usual if she is still here. She is supposed to follow up with her surgeons for PD catheter removal. <ELECTRONICALLY SIGNED> By: Preston Garcia MD 09/08/16 0719 0805 0934 Sabiha Hinton MD /nt
--- NOTE | ~2016-09-03 | HC ---
[facility] [place] [address] CONSULTATION Name: SOLITARIO CHAUHAN Room #: 301-I ADM IN M.R.#: [id number] Admission: 09/03/16 Attend Phys: Isak Estrella DO Discharge: Date of : 83 Report #: [id number] THIS REPORT FOR: //name// CC: Isak Chang REASON FOR CONSULTATION: I was asked to evaluate concerning fever postop. HISTORY OF PRESENT ILLNESS: The patient is a 31-year-old with history of sickle cell disease, end-stage renal disease had been seen in July with abdominal pain, and concern for malfunctioning PD catheter. It was arranged for her to follow up with her surgeon. Apparently, this did not happen. She returns on 09/03/2016 again with increased pain. She feels that she was in sickle crisis. She tends to have lower abdominal pain. She had fever associated with this. Ultimately taken to surgery yesterday for removal of her PD catheter. It was evident that the catheter was wrapped around small bowel resulting in a partial small-bowel obstruction. This was successfully explanted. Postoperatively, she has had fever up to 103 degrees. She has had intermittent cough with no sputum production. No chest pain. She still has abdominal pain. No stools or diarrhea noted. She has a right chest Port-A-Cath in place and a left chest dialysis catheter. ALLERGIES: ZOFRAN results in diarrhea. MEDICATIONS: Include ceftriaxone that was started on September 03. Other medications as noted on her MAY, which were reviewed. PAST MEDICAL HISTORY, FAMILY HISTORY AND SOCIAL HISTORY: Unchanged from her previous consultation and that of recurrent H and P. REVIEW OF SYSTEMS: As noted above. PHYSICAL EXAMINATION: VITAL SIGNS: Temperature was 99.2, hemodynamically stable. Maximum temperature this morning was 103.1. GENERAL: She was alert and cooperative, on room air with O2 saturation of 97%. There was no rash. No adenopathy. She was lying in the position. She was to be transported to dialysis. Her chest catheter sites were unremarkable. CHEST: Clear. HEART: Regular. ABDOMEN: Diffusely tender. Her laparoscopic incisions were unremarkable. EXTREMITIES: Unremarkable. LABORATORY STUDIES: Sodium 133, potassium 5.2, bicarbonate 29, creatinine 3.7, hemoglobin 8, WBC 13, platelet count 251,000, 77% segs, 11% lymphs, and no report of sickle cells. Blood cultures from admission are negative. These were repeated again today. Her chest x-ray is pending. CT scan of the abdomen and [address] [address] CONSULTATION Name: SOLITARIO CHAUHAN Room #: [facility] ADM IN [facility].#: [id number] Admission: 09/03/16 Attend Phys: Isak Estrella DO Discharge: Date of : 83 Report #: [id number] pelvis on 09/03/2016, mild cardiomegaly. Lung bases were clear, atrophic spleen, retained stool in the rectum and colon. IMPRESSION: A 31-year-old with sickle cell disease and malfunctioning peritoneal catheter for dialysis. High fever postop would be concerned about pulmonary source versus IV access source versus intraabdominal source. Would recommend broadening her antibiotic coverage to include healthcare-associated bacteria as well as yeast. She will have chest x-ray and will await blood culture results. We will repeat her laboratory studies in the a.m. <ELECTRONICALLY SIGNED> By: Dada Reddy MD 09/11/16 0906 1108 1445 Dada Reddy MD /nt
--- NOTE | ~2016-09-03 | EKG ---
[place] [address] [facility] [place] [address] ELECTROCARDIOGRAM REPORT Name: SOLITARIO CHAUHAN Room #: 301-I ADM IN M.R.#: [id number] Admission: 09/03/16 Attend Phys: Isak Estrella DO Discharge: Date of : 83 Report #: [id number] THIS REPORT FOR: //name// 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
--- NOTE | ~2016-09-03 | O ---
[facility] [place] [address] OPERATIVE REPORT Name: SOLITARIO CHAUHAN Room #: 301-I ADM IN M.R.#: [id number] Admission: 09/03/16 Attend Phys: Isak Estrella DO Discharge: Date of : 83 Report #: [id number] THIS REPORT FOR: //name// CC: Isak Chang DATE OF SERVICE: 09/08/2016 PREOPERATIVE DIAGNOSES: 1. Severe, chronic pelvic pain. 2. Indwelling, malfunctioning peritoneal dialysis catheter. 3. End-stage renal disease, on hemodialysis. 4. Sickle cell disease. POSTOPERATIVE DIAGNOSES: 1. Severe, chronic pelvic pain. 2. Indwelling, malfunctioning peritoneal dialysis catheter. 3. End-stage renal disease, on hemodialysis. 4. Sickle cell disease. 5. Significant intraabdominal adhesions with partial small bowel obstruction. PROCEDURES PERFORMED: 1. Extensive laparoscopic lysis of pelvic adhesions with freeing of a small-bowel obstruction. 2. Removal of a malfunctioning peritoneal dialysis catheter. SURGEON: Ronnie Lam MD. GLASS BEVELER: CESARIO Trevino ANESTHESIA: General endotracheal anesthesia. ESTIMATED BLOOD LOSS: Minimal (less than 5 mL). COMPLICATIONS: None appreciated. SPECIMENS: Peritoneal dialysis catheter to pathology. INDICATIONS: The patient is a 31-year-old female with sickle cell disease and end-stage renal disease, thought secondary to her primary process, who has been undergoing chronic hemodialysis. The patient underwent placement of a peritoneal dialysis catheter last month at [facility]. Since that time, the patient has had chronic pelvic pain and she was told that the catheter itself was sutured low in the pelvis. I have obtained the operative report and in fact this was sutured to the pelvic perirectal sidewall and as she is having chronic pain with intermittent obstructive [facility] [address] [place] [address] OPERATIVE REPORT Name: TIENSOLITARIO Room #: 301-I [facility] ..#: [id number] Admission: 09/03/16 Attend Phys: Isak Estrella DO Discharge: Date of : 83 Report #: [id number] symptoms, coupled with malfunctioning nature of her peritoneal dialysis catheter, indication was for both laparoscopic lysis of adhesions as well as removal of her catheter today. DESCRIPTION OF PROCEDURE: After explaining the risks, benefits and alternatives of the procedure with the patient in detail in the preoperative holding area and obtaining written consent, the patient was brought to the operating room and placed supine on the operating room table. After conducting a thorough timeout procedure verifying correct patient and procedure, the patient was given general endotracheal anesthesia. Once adequate anesthesia was obtained, her SCDs were hooked up to pneumatic compression device. She was given a preoperative dose of antibiotics in line with the SCIP protocol. The patient's abdomen was prepped and draped in standard surgical sterile fashion. 5 mL of 0.5% Marcaine with epinephrine were used to anesthetize the skin in the left upper quadrant and her prior incision site. A #15 bladed scalpel was used to create a small skin galo at this location. A 5 mm Visiport was placed over 0 degree 5 mm laparoscope and was introduced through this incision site. Once intraabdominal placement was verified visually, the obturator for the trocar and laparoscope were both removed and the abdomen was insufflated to 15 mmHg using carbon dioxide gas. The laparoscope was changed to a 5 mm 30 degree laparoscope, which was reintroduced through this trocar. The entire abdomen was evaluated to ensure no injury upon entry. The patient was now placed in steep Trendelenburg position and we saw the peritoneal dialysis catheter running into the pelvis where it appeared to be wrapped around numerous loops of small bowel and tethered to the pelvic sidewall as per the operative report. I now proceeded to place 2 additional trocars, the first being a 5 mm trocar in the right upper quadrant and the second being another 5 mm trocar in the left lower quadrant, both at sites of prior trocar insertions. These were both placed under direct vision after anesthetizing the skin at each location with 5 mL of 0.5% Marcaine with epinephrine and I had created small skin nicks using #15 bladed scalpel. Attempts at sweeping the bowels out of the pelvis were unsuccessful and further evaluation showed that the tip of the peritoneal dialysis catheter had intertwined around numerous loops of small bowel causing a relative obstruction. I now used EndoShears to take down all of these adhesions holding this catheter in place and ultimately was able to free the loops of bowel in their entirety without injuring the serosa in any way. Full inspection of the bowel showed it to be completely healthy without injury. The catheter itself was tethered to the left perirectal pelvic sidewall. The catheter itself was tented towards the midline and EndoShears were used to cut the silk sutures holding it in place. This patient is very thin and it was easy to identify both the iliacs as well as the ureter on the left, which were running right under where the catheter was tethered to the pelvic sidewall. We stayed well away from these structures at all times. Now that the lysis of adhesions had been performed and the catheter had been freed from its pelvic adhesions, the abdomen was fully desufflated and all ports removed under direct vision. The left lower quadrant trocar site was extended through approximately 1 cm in length and I was able to identify the [facility] [address] [address] OPERATIVE REPORT Name: SOLITARIO CHAUHAN Room #: 301-I ADM IN M.R.#: [id number] Admission: 09/03/16 Attend Phys: Isak Estrella DO Discharge: Date of : 81 Report #: [id number] middle hub in the abdomen. Electrocautery was used to remove this as there was significant scar tissue in the subcutaneous tissues and in the subfascial level. Once this was fully removed, I was able to easily displace the Dacron cuff from its tunneled location and removed the entire catheter in full which was then passed off the field as specimen. Evaluation of the wound showed complete hemostasis; however, the anterior rectus fascia had a small defect in it from where the catheter passed through into the abdomen. 0 PDS suture was now used in a dqubwh-go-ivkwa fashion to repair this defect in full. A 4-0 Monocryl was then used in a standard subcuticular fashion for all skin incisions and Dermabond glue was applied to all skin wounds. At the end of the procedure, all instrument, needle and sponge counts were correct. The patient tolerated the procedure without incident, was awakened in the operating room and transitioned to the recovery room in stable condition with no apparent complications. <ELECTRONICALLY SIGNED> By: Ronnie Lam MD, FACS 09/10/162011 1614 1706 Ronnie Lam MD, EDGAR /nt
[2016-09-03 15:20] VITALS: BP 134/86
[2016-09-03 16:09] LABS: ABSOLUTE RETIC COUNT 0.3014 10^6/uL; HEMATOCRIT 21.7 % (37.0-47.0); HEMOGLOBIN 7.5 gm/dL (12.0-15.0); MCH 31.1 pg (26.0-34.0); MCHC 34.7 g/dL (28.0-37.0); MCV 89.6 fL (80.0-100.0); OBSERVED RETIC COUNT 12.44 % (0.6-2.6); PLATELET COUNT 241 thou/uL (150-400); RBC 2.42 mil/uL (4.20-5.00); RDW 21.1 % (10.5-14.5)
[2016-09-03 16:10] LABS: MANUAL DIFF YES
[2016-09-03 16:12] LABS: CALCIUM 8.7 mg/dL (8.5-10.1); CREATININE 2.1 mg/dL (0.6-1.0); POTASSIUM 4.2 mmol/L (3.5-5.1)
[2016-09-03 16:16] LABS: ALBUMIN 3.3 g/dL (3.4-5.0); DIRECT BILIRUBIN 0.6 mg/dL (<0.1-0.3); TOTAL BILIRUBIN 3.5 mg/dL (<0.1-1.0); TOTAL PROTEIN 8.4 g/dL (6.4-8.2)
[2016-09-03 16:36] LABS: TOTAL CELL COUNT 100
[2016-09-03 16:37] LABS: ANISOCYTOSIS 1+; MACROCYTES SLIGHT
[2016-09-03 16:38] LABS: HYPOCHROMASIA SLIGHT
[2016-09-03 17:30] LABS: URINE BILIRUBIN NEGATIVE (Negative); URINE BLOOD 3+ (Negative); URINE COLOR AMBER; URINE GLUCOSE-RANDOM* NEGATIVE (Negative); URINE KETONES NEGATIVE (Negative); URINE NITRITE NEGATIVE (Negative); URINE PROTEIN (DIPSTICK) 3+ (Negative); URINE SPECIFIC GRAVITY 1.015 (1.003-1.035)
[2016-09-03 17:42] LABS: BACTERIA 1-9 Few /HPF (None Seen); CASTS None Seen /LPF (None Seen); CRYSTALS None Seen /LPF (None Seen); SQUAMOUS 0-3 Few /LPF (0-3); URINE WBC 0-5 Rare /HPF (0-5)
[2016-09-03] MEDS ORDERED: CIPRO500 MG PO (18:12)
[2016-09-03 19:45] VITALS: BP 144/109
[2016-09-03 20:00] VITALS: BP 113/77
[2016-09-03] MEDS ORDERED: ANTACID650 MG PO (21:44)
[2016-09-04] VITALS: BP 113/77
[2016-09-04 03:45] VITALS: BP 116/79
[2016-09-04 06:06] LABS: MCV 91.4 fL (80.0-100.0); RBC 2.14 mil/uL (4.20-5.00); RDW 21.5 % (10.5-14.5); WBC 17.6 thou/uL (4.0-11.0)
[2016-09-04 06:20] LABS: ALBUMIN 2.8 g/dL (3.4-5.0); CALCIUM 8.6 mg/dL (8.5-10.1); POTASSIUM 4.3 mmol/L (3.5-5.1); TOTAL BILIRUBIN 1.9 mg/dL (<0.1-1.0); TOTAL PROTEIN 7.5 g/dL (6.4-8.2)
[2016-09-04 06:32] LABS: CREATININE 3.2 mg/dL (0.6-1.0)
[2016-09-04 06:38] LABS: HEMATOCRIT 19.6 % (37.0-47.0)
[2016-09-04 06:40] LABS: HEMOGLOBIN 6.7 gm/dL (12.0-15.0)
[2016-09-04 07:40] VITALS: BP 119/85
[2016-09-04 14:15] VITALS: BP 119/80
[2016-09-04 15:50] VITALS: BP 120/78
[2016-09-04 19:10] VITALS: BP 137/91
[2016-09-05 03:30] VITALS: BP 119/88
[2016-09-05 09:05] VITALS: BP 129/85
[2016-09-05 17:20] VITALS: BP 128/97
[2016-09-05 20:00] VITALS: BP 132/90
[2016-09-06 04:00] VITALS: BP 128/96
[2016-09-06 06:25] LABS: HEMATOCRIT 24.1 % (37.0-47.0); HEMOGLOBIN 8.1 gm/dL (12.0-15.0); MCH 31.5 pg (26.0-34.0); MCHC 33.8 g/dL (28.0-37.0); MCV 93.4 fL (80.0-100.0); RBC 2.58 mil/uL (4.20-5.00); RDW 22.5 % (10.5-14.5); WBC 13.8 thou/uL (4.0-11.0)
[2016-09-06 06:35] LABS: CALCIUM 8.9 mg/dL (8.5-10.1); CREATININE 3.1 mg/dL (0.6-1.0); POTASSIUM 3.8 mmol/L (3.5-5.1)
[2016-09-06 08:09] VITALS: BP 133/99
[2016-09-06 15:57] VITALS: BP 133/90
[2016-09-06 19:20] VITALS: BP 136/99
[2016-09-07 03:30] VITALS: BP 126/88
[2016-09-07 07:28] VITALS: BP 176/84
[2016-09-07 08:10] VITALS: BP 137/94
[2016-09-07 08:22] VITALS: BP 148/85
[2016-09-07 17:19] VITALS: BP 132/96
[2016-09-07 19:00] VITALS: BP 126/90
[2016-09-08 03:33] VITALS: BP 125/88
[2016-09-08 05:29] LABS: HEMATOCRIT 23.1 % (37.0-47.0); HEMOGLOBIN 7.9 gm/dL (12.0-15.0); MCH 31.6 pg (26.0-34.0); MCHC 34.2 g/dL (28.0-37.0); MCV 92.5 fL (80.0-100.0); PLATELET COUNT 238 thou/uL (150-400); RDW 22.1 % (10.5-14.5); WBC 9.9 thou/uL (4.0-11.0)
[2016-09-08 05:35] LABS: MANUAL DIFF YES
[2016-09-08 05:40] LABS: CALCIUM 8.6 mg/dL (8.5-10.1); POTASSIUM 5.3 mmol/L (3.5-5.1)
[2016-09-08 05:48] LABS: CREATININE 4.4 mg/dL (0.6-1.0)
[2016-09-08 07:44] LABS: ABSOLUTE NEUTROPHILS 4.6 thou/uL (1.4-8.2); METAMYELOCYTES 1 %; NUCLEATED RBCS 2 /100WBC; TOTAL CELL COUNT 100
[2016-09-08 07:46] LABS: POLYCHROMASIA 1+
[2016-09-08 07:47] LABS: ANISOCYTOSIS 3+; MACROCYTES 1+; MICROCYTES 1+
[2016-09-08 08:34] VITALS: BP 139/99
[2016-09-08 16:36] VITALS: BP 117/82
[2016-09-08 17:30] VITALS: BP 112/78
[2016-09-08 20:00] VITALS: BP 127/91
[2016-09-09] VITALS: BP 118/93
[2016-09-09 04:00] VITALS: BP 137/2
[2016-09-09 05:35] LABS: HEMATOCRIT 22.6 % (37.0-47.0); HEMOGLOBIN 7.7 gm/dL (12.0-15.0); MCH 31.8 pg (26.0-34.0); MCHC 34.3 g/dL (28.0-37.0); MCV 92.8 fL (80.0-100.0); RBC 2.44 mil/uL (4.20-5.00); RDW 21.2 % (10.5-14.5); WBC 12.5 thou/uL (4.0-11.0)
[2016-09-09 05:58] LABS: CALCIUM 8.3 mg/dL (8.5-10.1); CREATININE 4.8 mg/dL (0.6-1.0); PHOSPHORUS 4.2 mg/dL (2.5-4.9); POTASSIUM 5.9 mmol/L (3.5-5.1)
[2016-09-09 11:30] VITALS: BP 131/77
[2016-09-09 18:40] VITALS: BP 130/92
[2016-09-09 19:30] VITALS: BP 127/91
[2016-09-10 03:30] VITALS: BP 134/75
[2016-09-10 05:23] LABS: HEMATOCRIT 23.5 % (37.0-47.0); MCH 30.8 pg (26.0-34.0); MCHC 33.9 g/dL (28.0-37.0); MCV 90.8 fL (80.0-100.0); PLATELET COUNT 251 thou/uL (150-400); RBC 2.58 mil/uL (4.20-5.00); RDW 20.6 % (10.5-14.5)
[2016-09-10 05:26] LABS: MANUAL DIFF YES
[2016-09-10 05:27] LABS: CALCIUM 8.8 mg/dL (8.5-10.1); POTASSIUM 5.2 mmol/L (3.5-5.1)
[2016-09-10 05:29] LABS: CREATININE 3.7 mg/dL (0.6-1.0)
[2016-09-10 05:54] LABS: ANISOCYTOSIS 2+; TOTAL CELL COUNT 100
[2016-09-10 08:00] VITALS: BP 113/78
[2016-09-10 16:00] VITALS: BP 106/80
[2016-09-10 19:30] VITALS: BP 103/64
[2016-09-11 03:45] VITALS: BP 110/83
[2016-09-11 06:05] LABS: HEMATOCRIT 24.3 % (37.0-47.0); HEMOGLOBIN 8.4 gm/dL (12.0-15.0); MCH 31.1 pg (26.0-34.0); MCHC 34.4 g/dL (28.0-37.0); MCV 90.4 fL (80.0-100.0); RBC 2.69 mil/uL (4.20-5.00); RDW 20.7 % (10.5-14.5); WBC 11.1 thou/uL (4.0-11.0)
[2016-09-11 06:18] LABS: CALCIUM 8.8 mg/dL (8.5-10.1); CREATININE 3.9 mg/dL (0.6-1.0); PHOSPHORUS 4.7 mg/dL (2.5-4.9); POTASSIUM 4.9 mmol/L (3.5-5.1)
[2016-09-11 09:27] VITALS: BP 104/81
[2016-09-11] MEDS ORDERED: AUGMENTIN 500-1 EACH PO (13:16)
[2016-09-11] MEDS ORDERED: DIFLUCAN200 MG PO (13:16)
[2016-09-11 14:56] VITALS: BP 104/81
[2016-09-11 15:31] VITALS: BP 104/81
== END 2016-09-11 15:30 | disposition home or self-care (01) | DRG 853 ==
LOC: ER 15:19 → EROBS 19:14 → 3N 19:14
PROVIDERS: Family Medicine; Internal Medicine Nephrology; Nurse Practitioner; Surgery
PROC: 5A1D00Z (ICD-10-PCS; 2016-09-03)
PROC: 30233N1 Transfusion of Nonautologous Red Blood Cells into Peripheral Vein, Percutaneous Approach (ICD-10-PCS; principal; 2016-09-04)
PROC: 0WPG43Z Removal of Infusion Device from Peritoneal Cavity, Percutaneous Endoscopic Approach (ICD-10-PCS; 2016-09-08)
PROC: 0DN84ZZ Release Small Intestine, Percutaneous Endoscopic Approach (ICD-10-PCS; 2016-09-08)
DX: A41.9 Sepsis, unspecified organism (principal); D57.00 Hb-SS disease with crisis, unspecified; N18.6 End stage renal disease; N39.0 Urinary tract infection, site not specified; F11.20 Opioid dependence, uncomplicated; T85.611A Breakdown (mechanical) of intraperitoneal dialysis catheter, initial encounter; K56.5 Intestinal adhesions [bands] with obstruction (postinfection); E44.0 Moderate protein-calorie malnutrition; Z68.1 Body mass index [BMI] 19.9 or less, adult; K59.00 Constipation, unspecified; R07.89 Other chest pain; E87.5 Hyperkalemia; R10.2 Pelvic and perineal pain; G89.29 Other chronic pain; F32.9 Major depressive disorder, single episode, unspecified; F41.9 Anxiety disorder, unspecified; Z88.8 Allergy status to other drugs, medicaments and biological substances; Z79.899 Other long term (current) drug therapy; Z99.2 Dependence on renal dialysis; Z90.49 Acquired absence of other specified parts of digestive tract; Z83.2 Family history of diseases of the blood and blood-forming organs and certain disorders involving the immune mechanism
CPT/HCPCS: 10094; 23012; 32100; 50010; 50101; 50249; 50386; 50555; 50962; 52265; 53307; 54118; 56462; 56525; 56526; 57092; 62110; 62900; 70005

== ENCOUNTER 2016-09-18 16:53 | Emergency (ER) | payer OTHER ==
[~2016-09-18] VITALS: Ht 172.7 cm; Wt 51.7 kg
[~2016-09-18 16:53] MED LIST changes: +ANTACID650 MG PO; +AUGMENTIN 500-1 EACH PO; +CIPRO500 MG PO; +DIFLUCAN200 MG PO
[2016-09-18 18:05] LABS: MCH 30.2 pg (26.0-34.0); MCHC 34.2 g/dL (28.0-37.0); MCV 88.3 fL (80.0-100.0); PLATELET COUNT 463 thou/uL (150-400); RBC 2.13 mil/uL (4.20-5.00); RDW 19.8 % (10.5-14.5); WBC 14.2 thou/uL (4.0-11.0)
[2016-09-18 18:08] LABS: MANUAL DIFF YES
[2016-09-18 18:09] LABS: HEMATOCRIT 18.8 % (37.0-47.0); HEMOGLOBIN 6.4 gm/dL (12.0-15.0)
[2016-09-18 18:13] LABS: CALCIUM 8.3 mg/dL (8.5-10.1); POTASSIUM 3.7 mmol/L (3.5-5.1)
[2016-09-18 18:18] LABS: ALBUMIN 2.9 g/dL (3.4-5.0); TOTAL BILIRUBIN 1.8 mg/dL (<0.1-1.0); TOTAL PROTEIN 7.9 g/dL (6.4-8.2)
[2016-09-18 18:19] LABS: ABSOLUTE RETIC COUNT 0.1127 10^6/uL; OBSERVED RETIC COUNT 5.2 % (0.6-2.6)
[2016-09-18 18:48] LABS: ABSOLUTE NEUTROPHILS 9.2 thou/uL (1.4-8.2); TOTAL CELL COUNT 100
[2016-09-18 18:49] LABS: ANISOCYTOSIS 3+; HYPOCHROMASIA 1+; POLYCHROMASIA OCCASIONAL; TARGET CELLS FEW
== END 2016-09-18 20:54 | disposition home or self-care (01) ==
LOC: ER 16:53
PROVIDERS: Nurse Practitioner Family
DX: D57.1 Sickle-cell disease without crisis (principal); G89.29 Other chronic pain; D72.829 Elevated white blood cell count, unspecified; R94.5 Abnormal results of liver function studies; N18.6 End stage renal disease; F32.9 Major depressive disorder, single episode, unspecified; F41.9 Anxiety disorder, unspecified; F10.99 Alcohol use, unspecified with unspecified alcohol-induced disorder; Z90.49 Acquired absence of other specified parts of digestive tract; Z99.2 Dependence on renal dialysis; Z88.1 Allergy status to other antibiotic agents

== ENCOUNTER 2016-09-20 15:16 | Emergency (ER) | payer OTHER ==
[~2016-09-20] VITALS: Ht 172.7 cm; Wt 51.7 kg
[2016-09-20] MEDS ORDERED: VALIUM5 MG PO (15:41)
[2016-09-20] MEDS ORDERED: MARINOL10 MG PO (15:41)
[2016-09-20 16:37] LABS: ABSOLUTE NEUTROPHILS 8.9 thou/uL (1.4-8.2); ABSOLUTE RETIC COUNT 0.2155 10^6/uL; BASOPHILS 1.1 % (0.0-2.0); EOSINOPHILS 4.4 % (0.0-3.0); HEMATOCRIT 20.1 % (37.0-47.0); HEMOGLOBIN 6.8 gm/dL (12.0-15.0); LYMPHOCYTES 25.2 % (24.0-44.0); MCH 30.7 pg (26.0-34.0); MCHC 33.7 g/dL (28.0-37.0); MCV 91.1 fL (80.0-100.0); OBSERVED RETIC COUNT 9.78 % (0.6-2.6); PLATELET COUNT 438 thou/uL (150-400); POLYS 58.3 % (36.0-66.0); RDW 20.4 % (10.5-14.5); WBC 15.3 thou/uL (4.0-11.0)
[2016-09-20 16:38] LABS: MANUAL DIFF NO
[2016-09-20 16:43] LABS: CALCIUM 8.4 mg/dL (8.5-10.1); POTASSIUM 4.4 mmol/L (3.5-5.1)
[2016-09-20 16:45] LABS: CREATININE 3.9 mg/dL (0.6-1.0)
== END 2016-09-20 19:00 | disposition home or self-care (01) ==
LOC: ER 15:16
PROVIDERS: Emergency Medicine
DX: D57.00 Hb-SS disease with crisis, unspecified (principal); F32.9 Major depressive disorder, single episode, unspecified; F41.9 Anxiety disorder, unspecified; N18.6 End stage renal disease; Z99.2 Dependence on renal dialysis; Z90.49 Acquired absence of other specified parts of digestive tract; Z98.890 Other specified postprocedural states; Z88.8 Allergy status to other drugs, medicaments and biological substances

== ENCOUNTER 2016-09-26 20:32 | Inpatient (IN) | payer OTHER ==
[~2016-09-26] VITALS: Ht 172.7 cm; Wt 51.7 kg
--- NOTE | ~2016-09-26 | EKG ---
[address] [place] [address] ELECTROCARDIOGRAM REPORT Name: SOLITARIO CHAUHAN Room #: 447-P [facility] IN M.R.#: [id number] Admission: 09/27/16 Attend Phys: Kyara Terry Discharge: 09/27/16 Date of : 81 Report #: [id number] THIS REPORT FOR: //name// [facility] ED Test Date: 2016-09-26 Test Time: 21:30:01 Pat Name: SOLITARIO CHAUHAN Department: Room: [facility] Gender: F Parts Inspector: MZOOK : 1985 Requested By: Anurag Madera Order Number: [id number] MD: Jordi Alfred Measurements Intervals [place] Rate: 93 P: 18 [place]: 139 QRS: 48 QRSD: 88 T: 51 QT: 385 QTc: 479 Interpretive Statements Sinus rhythm No significant abnormality Baseline wander in lead(s) III,aVF Compared to ECG 09/09/2016 18:54:11 No significant changes Electronically Signed On 09-28-2016 8:35:08 CDT by Jordi Alfred [email or web address] <ELECTRONICALLY SIGNED> By: Jordi Alfred MD, [facility] 09/28/16 0835 Jordi Alfred MD, [facility] /EPI
[~2016-09-26 20:32] MED LIST changes: +MARINOL10 MG PO; +VALIUM5 MG PO
[2016-09-26 20:34] VITALS: BP 132/86
[2016-09-26 22:07] LABS: HEMOGLOBIN 6.9 gm/dL (12.0-15.0); MCH 32.3 pg (26.0-34.0); MCHC 34.7 g/dL (28.0-37.0); MCV 93.1 fL (80.0-100.0); PLATELET COUNT 229 thou/uL (150-400); RBC 2.14 mil/uL (4.20-5.00); RDW 22.6 % (10.5-14.5); WBC 14.5 thou/uL (4.0-11.0)
[2016-09-26 22:10] LABS: MANUAL DIFF YES
[2016-09-26 22:11] LABS: HEMATOCRIT 19.9 % (37.0-47.0)
[2016-09-26 22:15] LABS: ANION GAP 8 mmol/L (7-16); BUN 61 mg/dL (7-18); CHLORIDE 102 mmol/L (98-107); CO2 27 mmol/L (21-32); CREATININE 6.1 mg/dL (0.6-1.0); GLUCOSE 117 mg/dL (74-106); POTASSIUM 5.2 mmol/L (3.5-5.1); SODIUM 137 mmol/L (136-145)
[2016-09-26 22:24] LABS: ALBUMIN 3.1 g/dL (3.4-5.0); ALKALINE PHOSPHATASE 211 U/L (46-116); DIRECT BILIRUBIN 0.4 mg/dL (<0.1-0.3); SGOT 137 U/L (15-37); SGPT 139 U/L (30-65); TOTAL BILIRUBIN 1.9 mg/dL (<0.1-1.0); TOTAL PROTEIN 8.1 g/dL (6.4-8.2); TROPONIN-I < 0.04 ng/mL (<0.04-0.07)
[2016-09-26 22:53] LABS: ABSOLUTE NEUTROPHILS 9.4 thou/uL (1.4-8.2); NUCLEATED RBCS 1 /100WBC; TOTAL CELL COUNT 100
[2016-09-26 22:54] LABS: ANISOCYTOSIS 3+; MACROCYTES 1+; POIKILOCYTOSIS 3+; POLYCHROMASIA OCCASIONAL
[2016-09-27 01:13] VITALS: BP 108/72
[2016-09-27 01:35] VITALS: BP 125/92
[2016-09-27 05:18] VITALS: BP 111/62
[2016-09-27 09:26] LABS: MCH 31.5 pg (26.0-34.0); MCHC 33.9 g/dL (28.0-37.0); MCV 92.7 fL (80.0-100.0); RBC 1.93 mil/uL (4.20-5.00); RDW 21.5 % (10.5-14.5); WBC 13.6 thou/uL (4.0-11.0)
[2016-09-27 09:30] LABS: HEMOGLOBIN 6.1 gm/dL (12.0-15.0)
[2016-09-27 09:31] LABS: HEMATOCRIT 17.9 % (37.0-47.0)
[2016-09-27 09:45] LABS: ALBUMIN 2.8 g/dL (3.4-5.0); CALCIUM 8.6 mg/dL (8.5-10.1); CREATININE 5.6 mg/dL (0.6-1.0); PHOSPHORUS 5.7 mg/dL (2.5-4.9); POTASSIUM 5.4 mmol/L (3.5-5.1); TOTAL PROTEIN 7.4 g/dL (6.4-8.2)
[2016-09-27 12:16] LABS: URINE BILIRUBIN NEGATIVE (Negative); URINE BLOOD 2+ (Negative); URINE COLOR YELLOW; URINE GLUCOSE-RANDOM* NEGATIVE (Negative); URINE KETONES NEGATIVE (Negative); URINE LEUKOCYTES-REFLEX NEGATIVE (Negative); URINE PROTEIN (DIPSTICK) 2+ (Negative); URINE UROBILINOGEN 0.2 E.U./dl (0.2-1.0)
[2016-09-27 12:21] LABS: AMP/METHAMP Negative (Negative); BARBITURATES Negative (Negative); BENZODIAZEPINES Negative (Negative); COCAINE Negative (Negative); METHADONE Negative (Negative); OPIATES POSITIVE (Negative); PCP Negative (Negative); THC Negative (Negative)
[2016-09-27 12:27] LABS: CASTS None Seen /LPF (None Seen); CRYSTALS None Seen /LPF (None Seen); SQUAMOUS 0-3 Few /LPF (0-3); URINE RBC None Seen /HPF (0-2); URINE WBC-REFLEX None Seen /HPF (0-5)
== END 2016-09-27 14:55 | disposition left against medical advice (07) | DRG 438 ==
LOC: ER 20:32 → EROBS 09-27 00:32 → 4S 09-27 00:32
PROVIDERS: Emergency Medicine; Nurse Practitioner Family
DX: K85.90 Acute pancreatitis without necrosis or infection, unspecified (principal); D57.00 Hb-SS disease with crisis, unspecified; N18.6 End stage renal disease; F11.20 Opioid dependence, uncomplicated; F41.9 Anxiety disorder, unspecified; F32.9 Major depressive disorder, single episode, unspecified; D72.829 Elevated white blood cell count, unspecified; K59.00 Constipation, unspecified; Z53.21 Procedure and treatment not carried out due to patient leaving prior to being seen by health care provider; E83.111 Hemochromatosis due to repeated red blood cell transfusions; Z90.49 Acquired absence of other specified parts of digestive tract; Z99.2 Dependence on renal dialysis; Z79.899 Other long term (current) drug therapy; Z88.8 Allergy status to other drugs, medicaments and biological substances
CPT/HCPCS: 10100

== ENCOUNTER 2016-11-22 17:28 | Emergency (ER) | payer OTHER ==
[~2016-11-22] VITALS: Ht 172.7 cm; Wt 52.2 kg
[2016-11-22 18:15] LABS: ABSOLUTE NEUTROPHILS 6.9 thou/uL (1.4-8.2); BASOPHILS 0.5 % (0.0-2.0); EOSINOPHILS 2.1 % (0.0-3.0); HEMATOCRIT 22.8 % (37.0-47.0); HEMOGLOBIN 7.7 gm/dL (12.0-15.0); LYMPHOCYTES 32.4 % (24.0-44.0); MCH 29.9 pg (26.0-34.0); MCHC 33.5 g/dL (28.0-37.0); MCV 89.4 fL (80.0-100.0); MONOCYTES 11.9 % (1.0-8.0); PLATELET COUNT 316 thou/uL (150-400); POLYS 53.1 % (36.0-66.0); RBC 2.55 mil/uL (4.20-5.00); RDW 18.4 % (10.5-14.5)
[2016-11-22 18:16] LABS: MANUAL DIFF NO
[2016-11-22 18:19] LABS: ABSOLUTE RETIC COUNT 0.1898 10^6/uL; OBSERVED RETIC COUNT 7.3 % (0.6-2.6)
[2016-11-22 18:35] LABS: CALCIUM 9.2 mg/dL (8.5-10.1); CREATININE 5.9 mg/dL (0.6-1.0); POTASSIUM 5.3 mmol/L (3.5-5.1)
[2016-11-22 18:41] LABS: ALBUMIN 3.2 g/dL (3.4-5.0); TOTAL BILIRUBIN 1.6 mg/dL (<0.1-1.0); TOTAL PROTEIN 9.1 g/dL (6.4-8.2)
== END 2016-11-22 22:46 | disposition home or self-care (01) ==
LOC: ER 17:28
PROVIDERS: Physician Assistant
DX: D57.00 Hb-SS disease with crisis, unspecified (principal); E86.0 Dehydration; R74.8 Abnormal levels of other serum enzymes; N18.6 End stage renal disease; F32.9 Major depressive disorder, single episode, unspecified; F41.9 Anxiety disorder, unspecified; Z90.49 Acquired absence of other specified parts of digestive tract; Z98.890 Other specified postprocedural states; Z99.2 Dependence on renal dialysis; Z88.8 Allergy status to other drugs, medicaments and biological substances

== ENCOUNTER 2016-11-26 17:51 | Inpatient (IN) | payer OTHER ==
[~2016-11-26] VITALS: Ht 172.7 cm; Wt 52.2 kg
--- NOTE | ~2016-11-26 | HC ---
[facility] [place] [address] CONSULTATION Name: SOLITARIO CHAUHAN Room #: 420-P ADM IN M.R.#: [id number] Admission: 11/26/16 Attend Phys: Renan Torrez MD Discharge: Date of : 81 Report #: [id number] THIS REPORT FOR: //name// CC: Renan Chang DATE OF SERVICE: 11/29/2016 INFECTIOUS DISEASE CONSULTATION ATTENDING PHYSICIAN: Renan Torrez M.D. REASON FOR CONSULTATION: Leukocytosis. HISTORY OF PRESENT ILLNESS: A 31-year-old -Niuean woman is seen in ID consultation regarding leukocytosis. At present, she is mainly telling me about her chronic leg and back pain and wondering what her narcotic dose is today. I advised the patient that I will not address that kind of issues, that she can bring those up with the attending physician. The patient denies nausea, vomiting, chronic abdominal pain. No fevers. PAST MEDICAL HISTORY: Sickle cell disease. Chronic pain syndrome. Narcotic dependence. Substance abuse, meth use and possible intravenous drug injection. End-stage renal disease, on hemodialysis through a right tunneled Perm-a-Cath. Status post C-sections x 2, cholecystectomy, tubal ligation. DRUG ALLERGIES: ONDANSETRON. MEDICATIONS: She is on treatment with fluoxetine, hydromorphone, promethazine, Benadryl, Zosyn ____ on dialysis days, vancomycin 500 mg post-hemodialysis 3 times weekly, Zosyn 2.25 grams IV every 8 hours. She is also on p.r.n. Benadryl, hydromorphone, promethazine. SOCIAL HISTORY: See H and P. FAMILY HISTORY: See H and P. REVIEW OF SYSTEMS: As above and see H and P. PHYSICAL EXAMINATION: GENERAL: Chronically ill-appearing woman. VITAL SIGNS: Temperature maximum since admission 99.4, down to 98.6, pulse 74, respirations 18, BP 112/80. HEENMT: Within range. NECK: Supple. CHEST: Right-sided tunneled dialysis catheter. [facility] [address] [place] [address] CONSULTATION Name: SOLITARIO CHAUHAN Room #: 420-P [facility] IN ..#: [id number] Admission: 11/26/16 Attend Phys: Renan Torrez MD Discharge: Date of : 81 Report #: [id number] LUNGS: Clear. HEART: S1, S2. ABDOMEN: Tender, surgical scars, soft. PELVIC AND RECTAL: Deferred. EXTREMITIES: No clubbing, cyanosis. NEUROLOGIC: Grossly within normal limits. LABORATORY DATA: Sodium 138, potassium 5.1, BUN 34, creatinine 5.9. White blood cell count 17.8 on November 26 and 14,500 today, hemoglobin 7.7 and platelets 209,000. Urinalysis revealed proteinuria and microscopic hematuria. MICROBIOLOGY DATA: Blood cultures obtained on November 27, they are negative. Blood cultures obtained on November 22 and did remain negative as well. RADIOLOGY EVALUATION: A chest x-ray obtained on November 26 revealed right dialysis catheter. Cardiomegaly. No infiltrates. ASSESSMENT: 1. Sickle cell disease. 2. Chronic pain syndrome. 3. Substance abuse. 4. Leukocytosis. 5. End-stage renal disease, on hemodialysis. SUGGESTIONS: Presently, this patient does not appear toxic, septic looking, consequently favor discontinuation of antibiotic. We will start by stopping Zosyn. May consider discontinuing vancomycin as well if cultures remain negative. Continue to monitor white blood cell count. Dr. Torrez, thank you for requesting our suggestions in the care of your patient. <ELECTRONICALLY SIGNED> By: Vishal Call MD 11/30/16 [phone] [id number] Vishal Call MD /nt
--- NOTE | ~2016-11-26 | HC ---
[facility] [place] [address] CONSULTATION Name: SOLITARIO CHAUHAN Room #: 420-P ADM IN M.R.#: [id number] Admission: 11/26/16 Attend Phys: Renan Torrez MD Discharge: Date of : 81 Report #: [id number] THIS REPORT FOR: //name// CC: Renan Chang DATE OF SERVICE: 11/28/2016 DATE OF SERVICE: 11/28/2016 REASON FOR CONSULTATION: Concerns about depression. HISTORY OF PRESENT ILLNESS: This lady was admitted in sickle cell crisis. She has been admitted with this disease state before. It has been very difficult year. She notes that she started dialysis in the early part of this year. There was a lost because of the sickle cell crisis and she also had a lost job opportunity recently too. She had been looking forward to be involved in a fashion show. The patient has been much more discouraged especially since she feels she was falsely accused of bringing a syringe and a lot of vials into the hospital. She is explaining that it was actually a nurse who left these items in her room and "he was a new nurse and he must not disposed of those items appropriately, but I did not want to get him in trouble." She feels that she has nobody to advocate for her. She feels like a burden on her family. She has not been suicidal. PAST PSYCHIATRIC HISTORY: Some years ago she was in treatment. Appeared it was more medication management than counseling. She was started on Prozac and has been on this medication since, currently up to 40 mg a day. PAST MEDICAL HISTORY: Sickle cell disease, end-stage renal disease, leukocytosis, chronic pain, physiological opioid dependence. SOCIAL HISTORY: She is . She has 2 children. 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 COGNITIVE EXAMINATION: She is alert and oriented to person, place, situation, and time. No significant deficits of short-term, long-term, intermediate memory as evidenced by her ability to recall elements of the past medical, psychiatric and social history. MENTAL STATUS EXAMINATION: -Swiss female, casually dressed in hospital attire, depressed mood. No involuntary movements, slightly anxious. No suicidal ideation, no homicidal ideation, no hallucinations, no delusions. Insight and judgment fair. DIAGNOSES: [facility] [address] [place] [address] CONSULTATION Name: SOLITARIO CHAUHAN Room #: 420-P [facility] IN M.R.#: [id number] Admission: 11/26/16 Attend Phys: Renan Torrez MD Discharge: Date of : 81 Report #: [id number] AXIS I: 1. Major depressive disorder, recurrent, moderate. 2. Anxiety disorder, not otherwise specified. 3. Physiological opioid dependence. AXIS II: Deferred. AXIS III: See past medical history. AXIS IV: Moderate. AXIS V: 45. RECOMMENDATIONS: We will restart her Prozac and increase the dosage to 60 mg. She has stating that her last dose of Benadryl got caught up in the IV and she did not get any benefit from that, so she is hoping to get another dose. I will have some oral available too, but I believe the IV has since been fixed. It appears her outpatient physician has wanted her to stay on a fairly high dose of Dilaudid even at baseline. Certainly sickle cell disease is a condition where there is chronic pain, which is exacerbated during flareups. It sounds as though she was prescribed 4-8 mg every 4-8 hours, which is a high dose. We can expect her to require more during a crisis. Defer to pain management and her outpatient provider whether tapering to a lower baseline dose is ever realistic in such a condition. By: [id number] Ric Mccain MD /nt
--- NOTE | ~2016-11-26 | HC ---
[facility] [place] [address] CONSULTATION Name: SOLITARIO CHAUHAN Room #: 420-P [facility] IN M.R.#: [id number] Admission: 11/26/16 Attend Phys: Renan Torrez MD Discharge: 12/01/16 Date of : 81 Report #: [id number] THIS REPORT FOR: //name// CC: Renan Chang DATE OF SERVICE: 11/27/2016 REASON FOR CONSULTATION: End-stage renal disease. HISTORY OF PRESENT ILLNESS: The patient is well known to our service with sickle cell nephropathy and chronic kidney disease. She has been on dialysis for several months. She has sickle cell disease and frequent sickle cell crisis with apparent narcotic dependence. She has been known to try multiple different hospitals, obtain intravenous narcotics and then to discharge when these are no longer freely supplied. She apparently recently had a new dialysis catheter placed. She had lost her previous catheter for unknown reasons and she missed her dialysis yesterday. Despite that, her volume status and numbers are not bad. PAST MEDICAL HISTORY: Sickle cell disease, apparent narcotic dependence, chronic kidney disease, currently dialysis dependent and hypertension. She at one time had a peritoneal dialysis catheter, it did not function well, caused also discomfort and was removed. HOME MEDICATIONS: Are being compiled. FAMILY HISTORY: Positive for sickle disease. SOCIAL HISTORY: Denies alcohol or cigarettes. REVIEW OF SYSTEMS: GENERAL: The patient is a poor historian. She is not readily answering questions or cooperating with the interview, appears to be quite withdrawn. EYES: Her vision apparently is okay. ENT: No trouble with swallowing. No mouth ulcers. ENDOCRINE: No diabetes. RESPIRATORY: Does not appear to be shortness of breath. No pleuritic pain. CARDIAC: Denies angina or palpitations. GASTROINTESTINAL: No apparent nausea, vomiting or diarrhea. No bloody stools. GENITOURINARY: Continues to make urine without dysuria. NEUROLOGIC: Moves all extremities, functions reasonably normally. MUSCULOSKELETAL: Complains of pain throughout. PHYSICAL EXAMINATION: [facility] [address] [place] [address] CONSULTATION Name: JOAN CHAUHANNMBARRERA Room #: [address] [place] [address] [place] ..#: [id number] Admission: 11/26/16 Attend Phys: Renan Torrez MD Discharge: 12/01/16 Date of : 81 Report #: [id number] GENERAL: This is a withdrawn, thin, young patient. SKIN: Unremarkable. SKELETAL: Well developed, well nourished, nonobese. HEENT: Extraocular movements appear to be full. No scleral icterus. Hearing and vision intact. Mucous membranes moist. NECK: Supple. CHEST: Clear. Tunneled dialysis catheter in right chest looks good. HEART: Regular. ABDOMEN: Soft. EXTREMITIES: No edema, good peripheral pulses and perfusion. NEUROLOGIC: She is rather lethargic, apparently just recently received pain medication. LABORATORY DATA: Hemoglobin 6.3, platelets 74. Sodium 139, potassium 4.2, chloride 102, bicarbonate 29, creatinine 3.5, BUN 23. ASSESSMENT AND PLAN: 1. Chronic kidney disease. She has chronic kidney disease. She seems to get by fairly well even when she misses dialysis and according to her account has not dialyzed since several days, but her numbers are fine and volume status is fine. Because of her chronic kidney disease, I will discontinue her IV saline and arrange for dialysis for tomorrow. a short 3-hour treatment. 2. Sickle cell disease. 3. Narcotic dependence. 4. Hypertension. <ELECTRONICALLY SIGNED> By: Cayetano Alberto MD 12/01/16 1143 [id number] 1122 Cayetano Alberto MD /nt
[2016-11-26 17:53] VITALS: BP 147/93
[2016-11-26 19:12] LABS: MCV 86.3 fL (80.0-100.0); RBC 2.09 mil/uL (4.20-5.00); WBC 17.8 thou/uL (4.0-11.0)
[2016-11-26 19:13] LABS: MCH 30.1 pg (26.0-34.0); MCHC 34.9 g/dL (28.0-37.0)
[2016-11-26 19:18] LABS: HEMOGLOBIN 6.3 gm/dL (12.0-15.0)
[2016-11-26 19:22] LABS: ANION GAP 8 mmol/L (7-16); BUN 23 mg/dL (7-18); CALCIUM 8.9 mg/dL (8.5-10.1); CHLORIDE 102 mmol/L (98-107); CO2 29 mmol/L (21-32); CREATININE 3.5 mg/dL (0.6-1.0); GLUCOSE 95 mg/dL (74-106); POTASSIUM 4.2 mmol/L (3.5-5.1); SODIUM 139 mmol/L (136-145)
[2016-11-26 19:29] LABS: TROPONIN-I < 0.04 ng/mL (<0.04-0.07)
[2016-11-26 19:31] LABS: ABSOLUTE RETIC COUNT 0.1969 10^6/uL; OBSERVED RETIC COUNT 9.05 % (0.6-2.6)
[2016-11-26 20:24] VITALS: BP 186/84
[2016-11-26 20:53] VITALS: BP 184/80
[2016-11-26 21:35] VITALS: BP 111/87
[2016-11-27 03:11] VITALS: BP 107/75; BP 113/78
[2016-11-27 08:28] VITALS: BP 114/78
[2016-11-27 08:43] LABS: URINE BILIRUBIN NEGATIVE (Negative); URINE BLOOD 2+ (Negative); URINE COLOR YELLOW; URINE GLUCOSE-RANDOM* NEGATIVE (Negative); URINE KETONES NEGATIVE (Negative); URINE LEUKOCYTES-REFLEX NEGATIVE (Negative); URINE PROTEIN (DIPSTICK) 2+ (Negative); URINE SPECIFIC GRAVITY 1.015 (1.003-1.035); URINE UROBILINOGEN 0.2 E.U./dl (0.2-1.0)
[2016-11-27 08:52] LABS: CASTS None Seen /LPF (None Seen); CRYSTALS None Seen /LPF (None Seen); SQUAMOUS 0-3 Few /LPF (0-3); URINE RBC None Seen /HPF (0-2); URINE WBC-REFLEX None Seen /HPF (0-5)
[2016-11-27 11:39] LABS: HEMATOCRIT 22.6 % (37.0-47.0); HEMOGLOBIN 7.7 gm/dL (12.0-15.0); MCH 30.3 pg (26.0-34.0); MCV 89.3 fL (80.0-100.0); RBC 2.53 mil/uL (4.20-5.00); RDW 16.9 % (10.5-14.5); WBC 12.4 thou/uL (4.0-11.0)
[2016-11-27 11:56] LABS: ALBUMIN 2.9 g/dL (3.4-5.0); CALCIUM 8.8 mg/dL (8.5-10.1); PHOSPHORUS 6.2 mg/dL (2.5-4.9); POTASSIUM 4.8 mmol/L (3.5-5.1)
[2016-11-27 11:57] LABS: CREATININE 4.7 mg/dL (0.6-1.0)
[2016-11-27 16:08] VITALS: BP 114/79
[2016-11-27 20:16] VITALS: BP 112/77
[2016-11-28 03:46] VITALS: BP 129/84
[2016-11-28 03:58] LABS: ALBUMIN 2.9 g/dL (3.4-5.0); PHOSPHORUS 5.9 mg/dL (2.5-4.9); POTASSIUM 5.1 mmol/L (3.5-5.1)
[2016-11-28 04:10] LABS: CREATININE 5.9 mg/dL (0.6-1.0)
[2016-11-28 04:32] LABS: HEMATOCRIT 22.5 % (37.0-47.0); HEMOGLOBIN 7.7 gm/dL (12.0-15.0); MCH 30.7 pg (26.0-34.0); MCV 90.2 fL (80.0-100.0); RBC 2.5 mil/uL (4.20-5.00); RDW 17.1 % (10.5-14.5); WBC 14.5 thou/uL (4.0-11.0)
[2016-11-28 08:00] VITALS: BP 124/85
[2016-11-28 15:35] VITALS: BP 129/91
[2016-11-28 19:32] VITALS: BP 117/83
[2016-11-29 05:48] VITALS: BP 112/80
[2016-11-29 11:20] LABS: ABSOLUTE NEUTROPHILS 6.6 thou/uL (1.4-8.2); BASOPHILS 0.4 % (0.0-2.0); HEMATOCRIT 22.9 % (37.0-47.0); HEMOGLOBIN 7.8 gm/dL (12.0-15.0); LYMPHOCYTES 23.2 % (24.0-44.0); MANUAL DIFF NO; MCH 30.5 pg (26.0-34.0); MCHC 33.9 g/dL (28.0-37.0); MCV 89.9 fL (80.0-100.0); MONOCYTES 9.3 % (1.0-8.0); PLATELET COUNT 217 thou/uL (150-400); POLYS 59.1 % (36.0-66.0); RBC 2.54 mil/uL (4.20-5.00); RDW 17.6 % (10.5-14.5); WBC 11.2 thou/uL (4.0-11.0)
[2016-11-29 21:00] VITALS: BP 129/98
[2016-11-30 04:44] LABS: HEMATOCRIT 22.1 % (37.0-47.0); HEMOGLOBIN 7.5 gm/dL (12.0-15.0); MCH 30.9 pg (26.0-34.0); MCHC 33.9 g/dL (28.0-37.0); RBC 2.43 mil/uL (4.20-5.00); RDW 17.4 % (10.5-14.5); WBC 11.1 thou/uL (4.0-11.0)
[2016-11-30 05:07] LABS: ALBUMIN 2.8 g/dL (3.4-5.0); CALCIUM 8.7 mg/dL (8.5-10.1); CREATININE 5.3 mg/dL (0.6-1.0); PHOSPHORUS 5.2 mg/dL (2.5-4.9); POTASSIUM 4.5 mmol/L (3.5-5.1)
[2016-11-30 06:06] VITALS: BP 142/101
[2016-11-30 16:12] VITALS: BP 128/90
[2016-11-30 19:46] VITALS: BP 121/84
[2016-12-01 03:46] VITALS: BP 128/94
[2016-12-01 07:56] VITALS: BP 125/76
[2016-12-01 10:18] VITALS: BP 125/76
== END 2016-12-01 10:49 | disposition home or self-care (01) | DRG 811 ==
LOC: ER 17:51 → EROBS 19:33 → 4E 19:33
PROVIDERS: Emergency Medicine; Hospitalist; Internal Medicine Nephrology; Nurse Practitioner Family
PROC: 30233N1 Transfusion of Nonautologous Red Blood Cells into Peripheral Vein, Percutaneous Approach (ICD-10-PCS; principal; 2016-11-27)
PROC: 5A1D60Z (ICD-10-PCS; 2016-11-28)
DX: D57.00 Hb-SS disease with crisis, unspecified (principal); N18.6 End stage renal disease; I12.0 Hypertensive chronic kidney disease with stage 5 chronic kidney disease or end stage renal disease; F11.20 Opioid dependence, uncomplicated; F33.1 Major depressive disorder, recurrent, moderate; F41.9 Anxiety disorder, unspecified; G89.4 Chronic pain syndrome; D72.829 Elevated white blood cell count, unspecified; Z88.8 Allergy status to other drugs, medicaments and biological substances; Z99.2 Dependence on renal dialysis; Z84.89 Family history of other specified conditions
CPT/HCPCS: 10183; 32100

== ENCOUNTER 2017-02-25 17:03 | Inpatient (IN) | payer OTHER ==
[~2017-02-25] VITALS: Ht 172.7 cm; Wt 54.9 kg
--- NOTE | ~2017-02-25 | EKG ---
[address] [address] ELECTROCARDIOGRAM REPORT Name: SOLITARIO CHAUHAN Room #: 363-P ADM IN M.R.#: [id number] Admission: 02/25/17 Attend Phys: Erick Woods MD Discharge: Date of : 81 Report #: [id number] THIS REPORT FOR: //name// [facility] ED Test Date: 2017-02-25 Test Time: 18:25:22 Pat Name: SOLITARIO CHAUHAN Department: Room: [facility] Gender: F Tunneling Machine Operator: [facility] : [id number] Requested By: Matty Alejo Order Number: [id number] MD: Micheal Call Measurements Intervals [place] Rate: 79 P: 27 [place]: 141 QRS: 34 QRSD: 98 T: 41 QT: 430 QTc: 494 Interpretive Statements Sinus rhythm Compared to ECG 09/26/2016 21:30:01 No significant changes Electronically Signed On 02-27-2017 12:19:16 FLOCCULATOR OPERATOR by Micheal Call [email or web address] <ELECTRONICALLY SIGNED> By: Micheal Call MD 02/27/17 1219 24 24 Micheal Call MD /YANA
[2017-02-25 17:05] VITALS: BP 136/99
[2017-02-25 17:46] LABS: HEMATOCRIT 25.1 % (37.0-47.0); HEMOGLOBIN 8.3 gm/dL (12.0-15.0); MCH 29.7 pg (26.0-34.0); PLATELET COUNT 222 thou/uL (150-400); RBC 2.79 mil/uL (4.20-5.00); WBC 19.4 thou/uL (4.0-11.0)
[2017-02-25 17:48] LABS: MANUAL DIFF YES
[2017-02-25 17:54] LABS: CALCIUM 8.7 mg/dL (8.5-10.1); CREATININE 6.5 mg/dL (0.6-1.0)
[2017-02-25 17:57] LABS: POTASSIUM 6.1 mmol/L (3.5-5.1)
[2017-02-25 18:01] LABS: DIRECT BILIRUBIN 0.3 mg/dL (<0.1-0.3); TOTAL BILIRUBIN 1.1 mg/dL (<0.1-1.0)
[2017-02-25 18:02] LABS: ALBUMIN 3.3 g/dL (3.4-5.0); TOTAL PROTEIN 8.5 g/dL (6.4-8.2)
[2017-02-25 18:11] LABS: ABSOLUTE NEUTROPHILS 17.1 thou/uL (1.4-8.2); TOTAL CELL COUNT 100
[2017-02-25 18:12] LABS: ANISOCYTOSIS 2+; POLYCHROMASIA SLIGHT
[2017-02-25 18:13] LABS: TARGET CELLS OCCASIONAL
[2017-02-25 19:44] LABS: ABSOLUTE RETIC COUNT 0.519 10^6/uL; OBSERVED RETIC COUNT 18.48 % (0.6-2.6)
[2017-02-25 20:00] LABS: URINE BILIRUBIN NEGATIVE (Negative); URINE BLOOD 2+ (Negative); URINE COLOR YELLOW; URINE GLUCOSE-RANDOM* NEGATIVE (Negative); URINE KETONES NEGATIVE (Negative); URINE NITRITE NEGATIVE (Negative); URINE PROTEIN (DIPSTICK) 2+ (Negative); URINE SPECIFIC GRAVITY 1.015 (1.003-1.035); URINE UROBILINOGEN 0.2 E.U./dl (0.2-1.0)
[2017-02-25 20:08] LABS: BACTERIA 1-9 Few /HPF (None Seen); CASTS None Seen /LPF (None Seen); CRYSTALS None Seen /LPF (None Seen); SQUAMOUS 0-3 Few /LPF (0-3); URINE RBC 0-2 Rare /HPF (0-2); URINE WBC None Seen /HPF (0-5)
[2017-02-25 20:09] LABS: AMP/METHAMP Negative (Negative); BARBITURATES Negative (Negative); BENZODIAZEPINES POSITIVE (Negative); COCAINE Negative (Negative); METHADONE Negative (Negative); OPIATES POSITIVE (Negative); PCP Negative (Negative); THC Negative (Negative)
[2017-02-25 20:44] VITALS: BP 113/72
[2017-02-25 21:00] VITALS: BP 121/74
[2017-02-25 22:32] LABS: CALCIUM 8.7 mg/dL (8.5-10.1); CREATININE 6.8 mg/dL (0.6-1.0); MAGNESIUM 1.9 mg/dL (1.8-2.4)
[2017-02-25 22:36] LABS: POTASSIUM 4.1 mmol/L (3.5-5.1)
[2017-02-26] VITALS: BP 119/82
[2017-02-26 04:00] VITALS: BP 117/92
[2017-02-26 06:44] LABS: HEMATOCRIT 22.1 % (37.0-47.0); HEMOGLOBIN 7.1 gm/dL (12.0-15.0); MCH 29.6 pg (26.0-34.0); MCV 92.4 fL (80.0-100.0); RBC 2.4 mil/uL (4.20-5.00); WBC 20.1 thou/uL (4.0-11.0)
[2017-02-26 07:04] LABS: CALCIUM 8.3 mg/dL (8.5-10.1); CREATININE 6.5 mg/dL (0.6-1.0); TOTAL PROTEIN 7.7 g/dL (6.4-8.2)
[2017-02-26 07:12] LABS: POTASSIUM 5.7 mmol/L (3.5-5.1)
[2017-02-26 08:01] VITALS: BP 125/81
[2017-02-26 20:20] VITALS: BP 107/69
[2017-02-27 03:30] VITALS: BP 112/68
[2017-02-27 12:40] VITALS: BP 111/61
[2017-02-27 16:17] VITALS: BP 98/63
[2017-02-27 19:45] VITALS: BP 108/61
[2017-02-28 04:15] VITALS: BP 102/66
[2017-02-28 06:08] LABS: HEMATOCRIT 20.9 % (37.0-47.0); HEMOGLOBIN 6.8 gm/dL (12.0-15.0); MCH 28.8 pg (26.0-34.0); MCHC 32.5 g/dL (28.0-37.0); MCV 88.6 fL (80.0-100.0); RBC 2.36 mil/uL (4.20-5.00); RDW 17.3 % (10.5-14.5); WBC 13.1 thou/uL (4.0-11.0)
[2017-02-28 06:22] LABS: ALBUMIN 2.9 g/dL (3.4-5.0); CALCIUM 8.7 mg/dL (8.5-10.1); CREATININE 3.5 mg/dL (0.6-1.0); PHOSPHORUS 5.4 mg/dL (2.5-4.9); POTASSIUM 4.4 mmol/L (3.5-5.1)
[2017-02-28 07:13] VITALS: BP 106/68
[2017-02-28 12:44] VITALS: BP 118/83
[2017-02-28 16:10] VITALS: BP 111/72
[2017-02-28 19:41] VITALS: BP 121/75
[2017-03-01 03:52] VITALS: BP 106/68
[2017-03-01 06:24] LABS: ALBUMIN 2.6 g/dL (3.4-5.0); CALCIUM 8.4 mg/dL (8.5-10.1); PHOSPHORUS 5.5 mg/dL (2.5-4.9); POTASSIUM 4.4 mmol/L (3.5-5.1)
[2017-03-01 07:38] VITALS: BP 122/73
[2017-03-01 15:28] VITALS: BP 109/80
[2017-03-01 20:00] VITALS: BP 111/75
[2017-03-02 03:25] VITALS: BP 109/82
[2017-03-02 06:07] LABS: MCH 30.1 pg (26.0-34.0); MCHC 34.5 g/dL (28.0-37.0); MCV 87.2 fL (80.0-100.0); RBC 1.94 mil/uL (4.20-5.00); RDW 16.8 % (10.5-14.5); WBC 13.2 thou/uL (4.0-11.0)
[2017-03-02 06:10] LABS: HEMATOCRIT 16.9 % (37.0-47.0); HEMOGLOBIN 5.8 gm/dL (12.0-15.0)
[2017-03-02 06:23] LABS: CALCIUM 8.1 mg/dL (8.5-10.1); MAGNESIUM 1.8 mg/dL (1.8-2.4); POTASSIUM 4.9 mmol/L (3.5-5.1)
[2017-03-02 06:25] LABS: CREATININE 3.6 mg/dL (0.6-1.0)
[2017-03-02 08:22] VITALS: BP 106/67
[2017-03-02 13:38] VITALS: BP 115/78; BP 124/89
[2017-03-02 14:20] VITALS: BP 106/67
== END 2017-03-02 17:16 | disposition home or self-care (01) | DRG 811 ==
LOC: ER 17:03 → 3W 20:17 → EROBS 20:17 → 3W 20:44
PROVIDERS: Internal Medicine; Internal Medicine Nephrology; Nurse Practitioner
PROC: 5A1D70Z Performance of Urinary Filtration, Intermittent, Less than 6 Hours Per Day (ICD-10-PCS; principal; 2017-02-26)
PROC: 5A1D70Z Performance of Urinary Filtration, Intermittent, Less than 6 Hours Per Day (ICD-10-PCS; 2017-02-27)
PROC: 30233N1 Transfusion of Nonautologous Red Blood Cells into Peripheral Vein, Percutaneous Approach (ICD-10-PCS; 2017-03-02)
DX: D57.00 Hb-SS disease with crisis, unspecified (principal); N18.6 End stage renal disease; F11.20 Opioid dependence, uncomplicated; F41.9 Anxiety disorder, unspecified; E87.5 Hyperkalemia; G89.29 Other chronic pain; D72.829 Elevated white blood cell count, unspecified; F32.9 Major depressive disorder, single episode, unspecified; Z90.49 Acquired absence of other specified parts of digestive tract; Z88.8 Allergy status to other drugs, medicaments and biological substances; Z79.899 Other long term (current) drug therapy
CPT/HCPCS: 10779; 32100

== ENCOUNTER 2018-05-15 07:48 | Inpatient (IN) | payer OTHER ==
[~2018-05-15] VITALS: Ht 172.7 cm; Wt 52.6 kg
--- NOTE | ~2018-05-15 | HC ---
[facility] [address] [address] CONSULTATION Name: SOLITARIO CHAUHAN Room #: 458-P ADM IN M.R.#: [id number] Admission: 05/15/18 Attend Phys: Kyara Terry Discharge: Date of : 81 Report #: [id number] THIS REPORT FOR: //name// CC: OLAF physician/PCP Kyara Terry DATE OF SERVICE: 05/16/2018 REASON FOR CONSULTATION: End-stage renal disease, on dialysis. HISTORY OF PRESENT ILLNESS: The patient is well known to our service from several hospitals around the [facility]. She has end-stage renal disease, on dialysis and history of sickle cell anemia. She is frequently coming to multiple different hospitals, according to her dialysis unit which I taught to this morning, she is in the hospital at least half the time. She is extremely narcotic dependent and typically will sign out of the hospital if not given IV narcotics. In the past at this hospital, she has been detected getting medical ampoules and needles out of the sharps box looking for traces of narcotics, etc. and does not come to this hospital very often anymore. PAST MEDICAL HISTORY: Remarkable for the previous history of PD catheter, which was not used and the end-stage renal disease and sickle cell anemia. HOME MEDICATIONS: As listed include oral Dilaudid at home, Benadryl, Phenergan, Lasix 80 mg daily, bicarbonate 650 mg daily. SOCIAL HISTORY: Denies cigarettes or alcohol. ALLERGIES: REPORTEDLY TO ZOFRAN. REVIEW OF SYSTEMS: In general, she has been very itchy and she is complaining of generalized pain, which she states is a sickle cell crisis as well as diarrhea. She has also had previous C. diff diarrhea, cholecystectomy, and tubal ligation. PHYSICAL EXAMINATION: GENERAL: This is a thin, anxious patient with a lot of itching. SKIN: Unremarkable. SKELETAL: Shows her to be thin. HEENT: Extraocular movements appear to be full. Vision is intact. Hearing is intact. NECK: Supple. CHEST: Clear. HEART: Regular. EXTREMITIES: Dialysis catheter in the right upper chest. NEUROLOGIC: Grossly intact. [facility] [address] [place] [address] CONSULTATION Name: SOLITARIO CHAUHAN Room #: 458-P [facility] IN M.R.#: [id number] Admission: 05/15/18 Attend Phys: Kyara Terry Discharge: Date of : 81 Report #: [id number] LABORATORY DATA: Hemoglobin 5, white count 11.8. Sodium 138, potassium 5.2, chloride 100, bicarbonate 22, BUN 57, creatinine 8.7. ASSESSMENT AND PLAN: 1. End-stage renal disease, for dialysis today. 2. Sickle cell anemia. 3. Extreme narcotic dependence. By: 0945 05 Cayetano Alberto MD /nt
[2018-05-15 07:51] VITALS: BP 155/96
[2018-05-15 08:43] LABS: MCH 33.7 pg (26.0-34.0); MCHC 35.3 g/dL (28.0-37.0); MCV 95.5 fL (80.0-100.0); PLATELET COUNT 194 thou/uL (150-400); RBC 1.48 mil/uL (4.20-5.00); RDW 27.8 % (10.5-14.5); WBC 11.8 thou/uL (4.0-11.0)
[2018-05-15 08:46] LABS: HEMATOCRIT 14.2 % (37.0-47.0)
[2018-05-15 08:48] LABS: CALCIUM 9.1 mg/dL (8.5-10.1); CREATININE 6.7 mg/dL (0.6-1.0); POTASSIUM 4.2 mmol/L (3.5-5.1)
[2018-05-15 08:54] LABS: ALBUMIN 3.3 g/dL (3.4-5.0); TOTAL BILIRUBIN 3.6 mg/dL (<0.1-1.0); TOTAL PROTEIN 8.1 g/dL (6.4-8.2)
[2018-05-15 08:57] LABS: ABSOLUTE RETIC COUNT 0.1218 10^6/uL; OBSERVED RETIC COUNT 8.08 % (0.6-2.6)
[2018-05-15] MEDS ORDERED: LASIX 80 MG TAB80 MG PO (09:23)
[2018-05-15 09:46] LABS: ANISOCYTOSIS 3+; CORRECTED WBC 10.6 thou/uL (4.0-11.0); NUCLEATED RBCS 11 /100WBC
[2018-05-15 09:47] LABS: HYPOCHROMASIA 1+; POLYCHROMASIA 1+
[2018-05-15 10:17] VITALS: BP 157/86
[2018-05-15 10:29] VITALS: BP 145/86
[2018-05-15 11:05] VITALS: BP 156/98
[2018-05-15 14:28] VITALS: BP 130/80
--- NOTE | 2018-05-15 14:40 | NUR ---
ADM PT CAME IN FROM ER. PT ORIENTED TO ROOM. ADM ORDERS CARRIED OUT. PT IS RECEIVING BLOOD AT THIS MOMENT. PAIN MANAGED BY MEDS. WILL CONTINUE TO MONITOR.
[2018-05-15 19:34] VITALS: BP 155/103
[2018-05-16 03:10] VITALS: BP 165/112
[2018-05-16 05:46] LABS: ABSOLUTE RETIC COUNT 0.291 10^6/uL; OBSERVED RETIC COUNT 15.67 % (0.6-2.6)
[2018-05-16 05:58] LABS: ALBUMIN 3.8 g/dL (3.4-5.0); CALCIUM 9.3 mg/dL (8.5-10.1); TOTAL BILIRUBIN 5.5 mg/dL (<0.1-1.0); TOTAL PROTEIN 8.6 g/dL (6.4-8.2)
[2018-05-16 05:59] LABS: CREATININE 8.7 mg/dL (0.6-1.0); POTASSIUM 5.2 mmol/L (3.5-5.1)
[2018-05-16 08:00] VITALS: BP 157/91
--- NOTE | 2018-05-16 11:46 | NUR ---
ASSUMED PT CARE AT 0645. PT WAS UP AND MOVING. SHE IS A/OX4. PT IS CONCERNED THAT DRS ARE NOT GIVING HER THE PROPER IV MEDICATIONS TO TREAT HER PAIN. THIS HAS BEEN ADDRESSED BY THE DR AND THEY ARE NOT WANTING TO GIVE HER MORE PAIN MEDICATION. PT WILL GO TO DIALYSIS AFTER 1 PM. [facility]
[2018-05-16 18:53] VITALS: BP 165/98
--- NOTE | 2018-05-17 02:20 | NUR ---
CARE ASSUMED AT 1900. PATIENT WANTED TO LEAVE AMA. STRUCTURAL STEEL ERECTOR NOTIFIED AND APPLICATION INFRASTRUCTURE ENGINEER NOTIFIED. PATIENT SIGNED AMA PAPERS. PATIENT REFUSED ASSESSMENT.IV ACCESS REMOVED AND [place] PARKED WITH HEPARIN.PATIENT WAS TAKEN OUTSIDE BY STAFF. PATIENT LEFT VIA A WHEEL CHAIR, PICKED PATIENT UP AT THE FRONT DOOR. .
== END 2018-05-16 22:35 | disposition left against medical advice (07) | DRG 811 ==
LOC: ER 07:48 → 4W 09:54 → EROBS 09:54 → 4W 10:47
PROVIDERS: Emergency Medicine; ADMIT Hospitalist
PROC: 30233N1 Transfusion of Nonautologous Red Blood Cells into Peripheral Vein, Percutaneous Approach (ICD-10-PCS; principal; 2018-05-15)
PROC: 5A1D70Z Performance of Urinary Filtration, Intermittent, Less than 6 Hours Per Day (ICD-10-PCS; 2018-05-16)
DX: D57.00 Hb-SS disease with crisis, unspecified (principal); N18.6 End stage renal disease; F11.20 Opioid dependence, uncomplicated; Z53.21 Procedure and treatment not carried out due to patient leaving prior to being seen by health care provider; G89.29 Other chronic pain; F32.9 Major depressive disorder, single episode, unspecified; F41.9 Anxiety disorder, unspecified; Z90.49 Acquired absence of other specified parts of digestive tract; Z88.8 Allergy status to other drugs, medicaments and biological substances; Z79.899 Other long term (current) drug therapy
CPT/HCPCS: 10045; 32100